=== PATIENT | male | born 1935 | race African-American/Black ===

== ENCOUNTER 2017-04-11 10:51 | Emergency (ER) | payer MEDICARE, BC ==
[2017-04-11] MEDS ORDERED: DIPH/PERTUSS(ACELL)/TETANUS VAC/PF 0.5 ML SYR (>=10YO) IM ONE (10:59)
--- NOTE | 2017-04-11 11:02 | ER Document Report ---
ED Fall - General Stated Complaint: FALL BODY PAIN Time Seen by Provider: 04/11/17 10:56 Mode of Arrival: Medic Information source: Emergency Med Personnel TRAVEL OUTSIDE OF THE [place] IN LAST 30 DAYS: No - HPI Patient complains to provider of: Fall from bed with LOC Occurred: Just prior to arrival Where: Home Associated symptoms: Lost consciousness Location of injury/pain: Face, Head Notes: Patient is an 82-year-old male who is brought to the emergency room by EMS for complaints of fall from bed this morning with positive LOC according to his , patient does not recall falling, patient's did report to EMS that he has been increasingly confused lately patient is a poor historian and unable to provide any further details, patient's is not currently in the emergency room with patient to provide further details either, he does have small abrasions to his forehead and nasal bridge - Related data Allergies/Adverse Reactions: No Known Allergies Allergy (Verified 12/13/15 16:10) Past Medical History - General Information source: Emergency Med Personnel - Social History Smoking Status: Unknown if Ever Smoked Family History: Reviewed & Not Pertinent - Past Medical History Cardiac Medical History: Denies: Hx Coronary Artery Disease, Hx Heart Attack, Hx Hypertension Pulmonary Medical History: Denies: Hx Asthma, Hx Bronchitis, Hx COPD, Hx Pneumonia Neurological Medical History: Reports: Hx Cerebrovascular Accident - 1992. Denies: Hx Seizures GI Medical History: Denies: Hx Hepatitis, Hx Hiatal Hernia, Hx Ulcer Musculoskeltal Medical History: Denies Hx Arthritis Infectious Medical History: Denies: Hx Hepatitis Past Surgical History: Denies: Hx Open Heart Surgery, Hx Pacemaker - Immunizations Hx Diphtheria, Pertussis, Tetanus Vaccination: No Hx Pneumococcal Vaccination: 04/10/13 Review of Systems - Review of Systems -: Yes ROS unobtainable due to patient's medical condition Constitutional: No symptoms reported EENT: See HPI Cardiovascular: No symptoms reported Respiratory: No symptoms reported Gastrointestinal: No symptoms reported Genitourinary: No symptoms reported Male Genitourinary: No symptoms reported Musculoskeletal: No symptoms reported Skin: See HPI Hematologic/Lymphatic: No symptoms reported Neurological/Psychological: Confusion Physical Exam - Vital signs Vitals: Temp Pulse Resp BP Pulse Ox 97.5 F 53 L 18 126/59 H 100 04/11/17 10:55 04/11/17 10:55 04/11/17 10:55 04/11/17 10:55 04/11/17 10:55 Interpretation: Normal - General General appearance: Appears well, Alert - HEENT Head: Normocephalic, Abrasions - Small abrasions to right forehead and nasal bridge, over right maxilla Eyes: Normal Conjunctiva: Normal Extraocular movements intact: Yes Eyelashes: Normal Pupils: PERRL - Respiratory Respiratory status: No respiratory distress Chest status: Nontender Breath sounds: Normal Chest palpation: Normal - Cardiovascular Rhythm: Regular Heart sounds: Normal auscultation Murmur: No - Abdominal Inspection: Normal Distension: No distension Bowel sounds: Normal Tenderness: Nontender Organomegaly: No organomegaly - Back Back: Normal, Nontender - Extremities General upper extremity: Normal inspection, Nontender, Normal color, Normal ROM , Normal temperature General lower extremity: Normal inspection, Nontender, Normal color, Normal ROM , Normal temperature, Normal weight bearing. No: Vaughn's sign - Neurological Neuro grossly intact: Yes Cognition: Normal, Confused Orientation: Disoriented to place, Disoriented to time, Disoriented to events Mili Coma Scale Eye Opening: Spontaneous Mili Coma Scale Verbal: Confused Mili Coma Scale Motor: Obeys Commands Mili Coma Scale Total: 14 Speech: Normal Motor strength normal: LUE, RUE, LLE, RLE - Skin Skin Temperature: Warm Skin Moisture: Dry Skin Color: Normal Course - Re-evaluation Re-evalutation: 04/11/17 20:11 Imaging findings were discussed with patient and family members at bedside which are unremarkable, patient was discharged home with instructions for follow -up and advised to return if symptoms worsen, patient acknowledges understanding and agreement with the - Vital Signs Vital signs: Temp Pulse Resp BP Pulse Ox 97.5 F 62 18 124/62 100 04/11/17 14:25 04/11/17 14:25 04/11/17 14:25 04/11/17 14:25 04/11/17 14:25 - Laboratory Result Diagrams: 04/11/17 11:06 04/11/17 11:06 Laboratory results interpreted by me: 04/11/17 04/11/17 11:06 11:06 RDW 14.8 H Plt Count 130 L Eosinophils % 7.1 H BUN 22 H - Diagnostic Test Radiology reviewed: Image reviewed, Reports reviewed Procedures - Laceration/Wound Repair Nasal Bridge Time completed: 14:10 Wound length (cm): 1 Wound's Depth, Shape: Linear Laceration pre-procedure: Sterile PPE donned, Chloraprep applied Wound explored: Clean Wound Repaired With: Dermabond Discharge - Discharge Clinical Impression: Head injury Qualifiers: Encounter type: initial encounter Qualified Code(s): S09.90XA - Unspecified injury of head, initial encounter Laceration of nose Qualifiers: Encounter type: initial encounter Qualified Code(s): S01.21XA - Laceration without foreign body of nose, initial encounter Condition: Stable Disposition: HOME, SELF-CARE Instructions: Laceration Care ([facility]), Tetanus Immunization Given ([facility]), Soap Cleansing ([facility]), Skin Adhesive Closure ([facility]) Additional Instructions: Follow up with your primary care provider in one to 2 days. Return to the emergency room immediately if symptoms worsen or any additional concerns. Referrals: SUSSY VALENCIA MD [Primary Care Provider] - Follow up as needed
[2017-04-11 11:28] LABS: ABSOLUTE EOSINOPHILS # (AUTO) 0.3 10^3/uL (0.0-0.6); ABSOLUTE LYMPHOCYTES (AUTO) 1.6 10^3/uL (0.5-4.7); ABSOLUTE MONOCYTES (AUTO) 0.4 10^3/uL (0.1-1.4); ABSOLUTE NEUT (AUTO) 1.8 10^3/uL (1.7-8.2); BASOPHILS % (AUTO) 0.5 % (0-2); EOSINOPHILS % (AUTO) 7.1 % (0-6); HEMATOCRIT 42.3 % (37.9-51.0); HEMOGLOBIN 13.8 g/dL (13.5-17.0); HGB HCT DIFFERENCE -0.9; LYMPHOCYTES % (AUTO) 39.3 % (13-45); MEAN CORPUSCULAR HEMOGLOBIN 30.2 pg (27.0-33.4); MEAN CORPUSCULAR HGB CONC 32.7 g/dL (32.0-36.0); MEAN CORPUSCULAR VOLUME 93 fl (80-97); MONOCYTES % (AUTO) 9.3 % (3-13); RED BLOOD COUNT 4.57 10^6/uL (4.35-5.55); RED CELL DISTRIBUTION WIDTH 14.8 % (11.5-14.0); SEGMENTED NEUTROPHILS % (AUTO) 43.8 % (42-78)
[2017-04-11 11:53] LABS: ALANINE AMINOTRANSFERASE 23 U/L (21-72); ALBUMIN 3.7 g/dL (3.5-5.0); ALKALINE PHOSPHATASE 42 U/L (38-126); ANION GAP 9 (5-19); ASPARTATE AMINO TRANSFERASE 25 U/L (17-59); BILIRUBIN,DIRECT 0.3 mg/dL (0.0-0.4); BILIRUBIN,TOTAL 1.2 mg/dL (0.2-1.3); BLOOD UREA NITROGEN 22 mg/dL (7-20); CALCIUM 9.4 mg/dL (8.4-10.2); CARBON DIOXIDE 26 mmol/L (22-30); CHLORIDE 107 mmol/L (98-107); CREATININE RESULT 1.05 mg/dL (0.52-1.25); GLUCOSE 109 mg/dL (75-110); POTASSIUM 4.1 mmol/L (3.6-5.0); SODIUM 141.6 mmol/L (137-145); TOTAL PROTEIN 6.6 g/dL (6.3-8.2)
--- NOTE | 2017-04-11 12:07 | RADIOLOGY REPORT (SQ) ---
EXAM DESCRIPTION: CT HEAD WITHOUT COMPLETED DATE/TIME: 04/11/2017 11:45 am REASON FOR STUDY: bed 17 fall +LOC COMPARISON: CT brain 03/04/2008 TECHNIQUE: Axial images acquired through the brain without intravenous contrast. Images reviewed wi th bone, brain and subdural windows. Images stored on PACS. All CT scanners at this facility use dose modulation, iterative reconstruction, and/or weight based d osing when appropriate to reduce radiation dose to as low as reasonably achievable (ALARA). [facility]: Dose Right [facility]: CareDose [facility]: Dose Right [facility]: Teradose 4D [facility]: [employer] RADIATION DOSE: 64.61 mGy. LIMITATIONS: None. FINDINGS: VENTRICLES: Normal size and contour. CEREBRUM: Old right deep posterior frontal periventricular white matter infarct. Minimal small vesse l ischemic change in the bifrontal and biparietal regions. No CT evidence of acute large territory ischemic change, acute intracranial hemorrhage mass effect or midline shift. CEREBELLUM: No masses. No hemorrhage. No alteration of density. No evidence for acute infarction. EXTRAAXIAL SPACES: No fluid collections. No masses. ORBITS AND GLOBE: No intra- or extraconal masses. Normal contour of globe without masses. CALVARIUM: No fracture. PARANASAL SINUSES: Mucous membrane thickening bilateral maxillary sinuses. Fluid in the right fronta l and bilateral anterior ethmoid air cells. SOFT TISSUES: No mass or hematoma. OTHER: No other significant finding. IMPRESSION: No acute intracranial changes. TECHNICAL DOCUMENTATION: JOB ID: [id number] Quality ID # [id number]: Final reports with documentation of one or more dose reduction techniques (e.g., Au tomated exposure control, adjustment of the mA and/or kV according to patient size, use of iterative reconstruction technique) 2010 [employer]- All Rights Reserved
--- NOTE | 2017-04-11 12:10 | RADIOLOGY REPORT (SQ) ---
EXAM DESCRIPTION: CT CERVICAL SPINE WITHOUT COMPLETED DATE/TIME: 04/11/2017 11:46 am REASON FOR STUDY: bed 17 fall +LOC COMPARISON: None. TECHNIQUE: Axial images acquired through the cervical spine without intravenous contrast. Images re viewed with lung, soft tissue and bone windows. Reconstructed coronal and sagittal MPR images review ed. Images stored on PACS. All CT scanners at this facility use dose modulation, iterative reconstruction, and/or weight based d osing when appropriate to reduce radiation dose to as low as reasonably achievable (ALARA). [facility]: Dose Right [facility]: CareDose [facility]: Dose Right [facility]: Teradose 4D [facility]: [employer] RADIATION DOSE: 14.29 mGy. LIMITATIONS: None. FINDINGS: ALIGNMENT: Anatomic. MINERALIZATION: Normal. VERTEBRAL BODIES: No fractures or dislocation. DISCS: No significant disc disease. FACETS, LATERAL MASSES, POSTERIOR ELEMENTS: No fractures. No dislocation. No acute findings. Multi level facet arthropathy with moderate right C3-4, moderate left C4-5, moderate bilateral C5-6, and mo derate left C6-7 foraminal narrowing. HARDWARE: None in the spine. VISUALIZED RIBS: No fractures. LUNG APICES AND SOFT TISSUES: No significant or acute findings. OTHER: No other significant finding. IMPRESSION: No acute fracture or malalignment. TECHNICAL DOCUMENTATION: JOB ID: [id number] Quality ID # [id number]: Final reports with documentation of one or more dose reduction techniques (e.g., Au tomated exposure control, adjustment of the mA and/or kV according to patient size, use of iterative reconstruction technique) 2010 [employer]- All Rights Reserved
[2017-04-11 13:04] LABS: APPEARANCE,URINE CLEAR; BILIRUBIN,URINE NEGATIVE (NEGATIVE); GLUCOSE, URINE NEGATIVE (NEGATIVE); KETONES,URINE NEGATIVE (NEGATIVE); LEUKOCYTE ESTERASE,URINE NEGATIVE (NEGATIVE); NITRITE,URINE NEGATIVE (NEGATIVE); PROTEIN,URINE NEGATIVE (NEGATIVE); UROBILINOGEN,URINE NEGATIVE mg/dL (<2.0)
[2017-04-11 14:26] VITALS: BP 124/62
== END 2017-04-11 14:26 | disposition home or self-care (01) ==
LOC: ER 10:51
DX: S09.90XA Unspecified injury of head, initial encounter (principal); S01.21XA Laceration without foreign body of nose, initial encounter; R52 Pain, unspecified; W19.XXXA Unspecified fall, initial encounter
CPT/HCPCS: 36415; 70450; 72125; 80053; 81001; 85025; 87040; 87086; 90471; 90715; 99284

== ENCOUNTER 2017-06-18 11:34 | Emergency (ER) | payer BC, MEDICARE ==
[2017-06-18 12:07] LABS: ABSOLUTE EOSINOPHILS # (AUTO) 0.2 10^3/uL (0.0-0.6); ABSOLUTE LYMPHOCYTES (AUTO) 1.1 10^3/uL (0.5-4.7); ABSOLUTE MONOCYTES (AUTO) 0.3 10^3/uL (0.1-1.4); ABSOLUTE NEUT (AUTO) 2.7 10^3/uL (1.7-8.2); BASOPHILS % (AUTO) 0.7 % (0-2); EOSINOPHILS % (AUTO) 4.7 % (0-6); HEMATOCRIT 39.4 % (37.9-51.0); HEMOGLOBIN 13.3 g/dL (13.5-17.0); HGB HCT DIFFERENCE 0.5; LYMPHOCYTES % (AUTO) 25.3 % (13-45); MEAN CORPUSCULAR HEMOGLOBIN 31.2 pg (27.0-33.4); MEAN CORPUSCULAR HGB CONC 33.8 g/dL (32.0-36.0); MEAN CORPUSCULAR VOLUME 92 fl (80-97); RED BLOOD COUNT 4.27 10^6/uL (4.35-5.55); RED CELL DISTRIBUTION WIDTH 14.9 % (11.5-14.0); SEGMENTED NEUTROPHILS % (AUTO) 62.3 % (42-78); WHITE BLOOD COUNT 4.4 10^3/uL (4.0-10.5)
--- NOTE | 2017-06-18 12:21 | RADIOLOGY REPORT (SQ) ---
EXAM DESCRIPTION: CT HEAD WITHOUT COMPLETED DATE/TIME: 06/18/2017 12:11 pm REASON FOR STUDY: seizure COMPARISON: CT brain 04/11/2017, 03/04/2008 TECHNIQUE: Axial images acquired through the brain without intravenous contrast. Images reviewed wi th bone, brain and subdural windows. Images stored on PACS. All CT scanners at this facility use dose modulation, iterative reconstruction, and/or weight based d osing when appropriate to reduce radiation dose to as low as reasonably achievable (ALARA). [facility]: Dose Right [facility]: CareDose [facility]: Dose Right [facility]: Teradose 4D [facility]: [employer] RADIATION DOSE: Up-to-date CT equipment and radiation dose reduction techniques were employed. CTDIv ol: 64.6 mGy. DLP: 1163 mGy-cm. mGy. LIMITATIONS: None. FINDINGS: VENTRICLES: Normal size and contour. CEREBRUM: Old infarcts in the right frontal deep periventricular white matter extending into the post erior internal capsule. Spotty bifrontal and biparietal chronic white matter disease. No CT evidence of acute large territory infarct, acute intracranial hemorrhage, mass effect, or midli ne shift. CEREBELLUM: No masses. No hemorrhage. No alteration of density. No evidence for acute infarction. EXTRAAXIAL SPACES: No fluid collections. No masses. ORBITS AND GLOBE: No intra- or extraconal masses. Normal contour of globe without masses. CALVARIUM: No fracture. PARANASAL SINUSES: Mucous membrane thickening right maxillary sinus, opacified right frontal and ante rior ethmoid air cells. SOFT TISSUES: No mass or hematoma. OTHER: Very heavily calcified parasellar carotid arteries. IMPRESSION: No acute findings TECHNICAL DOCUMENTATION: JOB ID: [id number] Quality ID # [id number]: Final reports with documentation of one or more dose reduction techniques (e.g., Au tomated exposure control, adjustment of the mA and/or kV according to patient size, use of iterative reconstruction technique) 2010 [employer]- All Rights Reserved
[2017-06-18 12:33] LABS: ALANINE AMINOTRANSFERASE 18 U/L (21-72); ALBUMIN 3.5 g/dL (3.5-5.0); ALKALINE PHOSPHATASE 41 U/L (38-126); ANION GAP 7 (5-19); ASPARTATE AMINO TRANSFERASE 19 U/L (17-59); BILIRUBIN,DIRECT 0.3 mg/dL (0.0-0.4); BILIRUBIN,TOTAL 1.1 mg/dL (0.2-1.3); BLOOD UREA NITROGEN 14 mg/dL (7-20); CALCIUM 9.1 mg/dL (8.4-10.2); CARBON DIOXIDE 26 mmol/L (22-30); CHLORIDE 108 mmol/L (98-107); CREATININE RESULT 0.91 mg/dL (0.52-1.25); GLUCOSE 100 mg/dL (75-110); POTASSIUM 4.2 mmol/L (3.6-5.0); TOTAL PROTEIN 5.9 g/dL (6.3-8.2)
--- NOTE | 2017-06-18 12:47 | ER Document Report ---
ED General - General Chief Complaint: Probable Seizure Stated Complaint: POSSIBLE SEIZURE Time Seen by Provider: 06/18/17 11:45 Mode of Arrival: Ambulatory Information source: Patient Notes: 82-year-old male presents with concerns for absence seizure. It is noted that patient was at primary care office for abdominal pain, they had made appointment earlier when he had the pain but by the time the appointment date presented the patient no longer had any symptoms. But they still continue the visit. It is noted that the patient was talking fine and then had a 15 minute episode where he was staring off. Similar episode has occurred in January when they were in [place] Patient at this time denies any complaints denies any concerns TRAVEL OUTSIDE OF THE [place] IN LAST 30 DAYS: No - HPI Onset: Just prior to arrival Onset/Duration: Sudden Quality of pain: No pain Severity: Mild Pain Level: Denies Associated symptoms: Other Exacerbated by: Denies Relieved by: Denies Similar symptoms previously: Yes Recently seen / treated by doctor: Yes - Related Data Allergies/Adverse Reactions: No Known Allergies Allergy (Verified 12/13/15 16:10) Past Medical History - Social History Smoking Status: Never Smoker Cigarette use (# per day): No Chew tobacco use (# tins/day): No Smoking Education Provided: No Frequency of alcohol use: None Drug Abuse: None Family History: Reviewed & Not Pertinent Patient has suicidal ideation: No Patient has homicidal ideation: No - Past Medical History Cardiac Medical History: Denies: Hx Coronary Artery Disease, Hx Heart Attack, Hx Hypertension Pulmonary Medical History: Denies: Hx Asthma, Hx Bronchitis, Hx COPD, Hx Pneumonia Neurological Medical History: Reports: Hx Cerebrovascular Accident - 1992. Denies: Hx Seizures Renal/ Medical History: Denies: Hx Peritoneal Dialysis GI Medical History: Denies: Hx Hepatitis, Hx Hiatal Hernia, Hx Ulcer Musculoskeltal Medical History: Denies Hx Arthritis Infectious Medical History: Denies: Hx Hepatitis Past Surgical History: Denies: Hx Open Heart Surgery, Hx Pacemaker - Immunizations Hx Diphtheria, Pertussis, Tetanus Vaccination: No Hx Pneumococcal Vaccination: 04/10/13 Review of Systems - Review of Systems Notes: REVIEW OF SYSTEMS: CONSTITUTIONAL : Denies fever, chills, or sweats. Denies recent illness. EENT: Denies eye, ear, throat, or mouth pain or symptoms. Denies nasal or sinus congestion or discharge. Denies throat, tongue, or mouth swelling or difficulty swallowing. CARDIOVASCULAR: Denies chest pain. Denies palpitations or racing or irregular heart beat. Denies ankle edema. RESPIRATORY: Denies cough, cold, or chest congestion. Denies shortness of breath, difficulty breathing, or wheezing. GASTROINTESTINAL: Denies abdominal pain or distention. Denies nausea, vomiting , or diarrhea. Denies blood in vomitus, stools, or per rectum. Denies black, tarry stools. Denies constipation. GENITOURINARY: Denies difficulty urinating, painful urination, burning, frequency, blood in urine, or discharge. MUSCULOSKELETAL: Denies back or neck pain or stiffness. Denies joint pain or swelling. SKIN: Denies rash, lesions or sores. HEMATOLOGIC : Denies easy bruising or bleeding. LYMPHATIC: Denies swollen, enlarged glands. NEUROLOGICAL: 15 minute episode of staring off PSYCHIATRIC: Denies anxiety or stress. Denies depression, suicidal ideation, or homicidal ideation. ALL OTHER SYSTEMS REVIEWED AND NEGATIVE. Dictation was performed using [employer] voice recognition software PHYSICAL EXAMINATION: GENERAL: Well-appearing, well-nourished and in no acute distress. HEAD: Atraumatic, normocephalic. EYES: Pupils equal round and reactive to light, extraocular movements intact, sclera anicteric, conjunctiva are normal. ENT: Nares patent, oropharynx clear without exudates. Moist mucous membranes. NECK: Normal range of motion, supple without lymphadenopathy LUNGS: Breath sounds clear to auscultation bilaterally and equal. No wheezes rales or rhonchi. HEART: Regular rate and rhythm without murmurs ABDOMEN: Soft, nontender, nondistended abdomen. No guarding, no rebound. No masses appreciated. Musculoskeletal: Normal range of motion, no pitting or edema. No cyanosis. NEUROLOGICAL: Cranial nerves grossly intact. Normal speech, normal gait. Normal sensory, motor exams PSYCH: Normal mood, normal affect. SKIN: Warm, Dry, normal turgor, no rashes or lesions noted. Physical Exam - Vital signs Vitals: Temp Resp BP Pulse Ox 98.4 F 15 133/65 H 95 06/18/17 11:46 06/18/17 11:46 06/18/17 11:46 06/18/17 11:46 Course - Re-evaluation Re-evalutation: 06/18/17 12:47 CT labwork so far no no significant abnormality, patient wishes to go home. I am awaiting a urine sample, patient will require neurology follow-up for an EEG , family is made aware of this 06/18/17 14:46 Urinalysis is consistent with positive nitrites patient will be started on antibiotics otherwise is well-appearing he will be given follow-up with urology for discharge 06/18/17 14:50 After performing a Medical Screening Examination, I estimate there is LOW risk for ACUTE APPENDICITIS, BOWEL OBSTRUCTION, ACUTE CHOLECYSTITIS, PERFORATED DIVERTICULITIS, INCARCERATED HERNIA, PANCREATITIS, or PERFORATED ULCER, thus I consider the discharge disposition reasonable. Also, there is no evidence or peritonitis, sepsis, or toxicity. I have reevaluated this patient multiple times and no significant life threatening changes are noted. The patient and I have discussed the diagnosis and risks, and we agree with discharging home with close follow-up with the understanding that symptoms and presentations can change. We also discussed returning to the Emergency Department immediately if new or worsening symptoms occur. We have discussed the symptoms which are most concerning (e.g., bloody stool, fever, changing or worsening pain, intractable vomiting - standard verbal up date) that necessitate immediate return. After performing a Medical Screening Examination, I estimate there is LOW risk for ACUTE GLAUCOMA, TEMPORAL ARTERITIS, MENINGITIS, INCRANIAL HEMORRHAGE, or ISCHEMIC STROKE thus I consider the discharge disposition reasonable. I have reevaluated this patient multiple times and no significant life threatening changes are noted. The patient and I have discussed the diagnosis and risks, and we agree with discharging home with close follow-up with the understanding that symptoms and presentations can change. We also discussed returning to the Emergency Department immediately if new or worsening symptoms occur. We have discussed the symptoms which are most concerning (e.g., changing or worsening symptoms, new numbness or weakness, vomiting, fever) that necessitate immediate return. - Vital Signs Vital signs: Temp Pulse Resp BP Pulse Ox 98.4 F 51 L 20 145/92 H 100 06/18/17 11:46 06/18/17 11:54 06/18/17 14:00 06/18/17 13:26 06/18/17 14:00 - Laboratory Result Diagrams: 06/18/17 11:55 06/18/17 11:55 Laboratory results interpreted by me: 06/18/17 06/18/17 06/18/17 11:55 11:55 13:30 RBC 4.27 L Hgb 13.3 L RDW 14.9 H Plt Count 134 L Chloride 108 H ALT 18 L Total Protein 5.9 L Urine Blood SMALL H Urine Nitrite POSITIVE H - Diagnostic Test Radiology reviewed: Image reviewed, Reports reviewed - no acute abnormality Discharge - Discharge Clinical Impression: Absence seizure UTI (urinary tract infection) Qualifiers: Urinary tract infection type: acute cystitis Hematuria presence: without hematuria Qualified Code(s): N30.00 - Acute cystitis without hematuria Condition: Stable Disposition: HOME, SELF-CARE Instructions: Urinary Tract Infection ([facility]), New Seizure ([facility]) Prescriptions: Cephalexin [Keflex] 500 mg PO BID #20 capsule Referrals: ROX CASEY DO [Primary Care Provider] - Follow up tomorrow NICOLAS RAE MD [ACTIVE STAFF] - Follow up tomorrow
--- NOTE | 2017-06-18 13:25 | EKG REPORT ---
SEVERITY:- ABNORMAL ECG - SINUS RHYTHM FIRST DEGREE AV BLOCK : Confirmed by: Carol Mensah 18-Jun-2017 13:24:40
[2017-06-18 14:38] LABS: APPEARANCE,URINE CLEAR; BILIRUBIN,URINE NEGATIVE (NEGATIVE); GLUCOSE, URINE NEGATIVE (NEGATIVE); KETONES,URINE NEGATIVE (NEGATIVE); LEUKOCYTE ESTERASE,URINE NEGATIVE (NEGATIVE); NITRITE,URINE POSITIVE (NEGATIVE); PROTEIN,URINE NEGATIVE (NEGATIVE); URINE SPECIFIC GRAVITY 1.014; UROBILINOGEN,URINE NEGATIVE mg/dL (<2.0)
[2017-06-18 14:41] VITALS: BP 145/92
== END 2017-06-18 15:00 | disposition home or self-care (01) ==
LOC: ER 11:34
DX: R56.9 Unspecified convulsions (principal); N30.00 Acute cystitis without hematuria; Z86.73 Personal history of transient ischemic attack (TIA), and cerebral infarction without residual deficits
CPT/HCPCS: 36415; 70450; 80053; 81001; 85025; 87086; 93005; 93010; 99285

== ENCOUNTER 2019-01-10 15:29 | Emergency (ER) | payer MEDICARE ==
[2019-01-10 15:55] LABS: ABSOLUTE LYMPHOCYTES (AUTO) 0.3 10^3/uL (0.5-4.7); ABSOLUTE MONOCYTES (AUTO) 0.3 10^3/uL (0.1-1.4); ABSOLUTE NEUT (AUTO) 3.4 10^3/uL (1.7-8.2); BASOPHILS % (AUTO) 0.4 % (0-2); EOSINOPHILS % (AUTO) 0.3 % (0-6); HEMATOCRIT 36.9 % (37.9-51.0); HEMOGLOBIN 12.5 g/dL (13.5-17.0); LYMPHOCYTES % (AUTO) 7.9 % (13-45); MEAN CORPUSCULAR HEMOGLOBIN 30.6 pg (27.0-33.4); MEAN CORPUSCULAR HGB CONC 33.8 g/dL (32.0-36.0); MEAN CORPUSCULAR VOLUME 90 fl (80-97); MONOCYTES % (AUTO) 8.2 % (3-13); RED BLOOD COUNT 4.08 10^6/uL (4.35-5.55); RED CELL DISTRIBUTION WIDTH 14.3 % (11.5-14.0); SEGMENTED NEUTROPHILS % (AUTO) 83.2 % (42-78); TOTAL CELLS COUNTED % (AUTO) 100 %
[2019-01-10 15:58] LABS: PLATELET COUNT 98 10^3/uL (150-450)
[2019-01-10 16:46] LABS: ALANINE AMINOTRANSFERASE 17 U/L (21-72); ALBUMIN 3.6 g/dL (3.5-5.0); ALKALINE PHOSPHATASE 38 U/L (38-126); ANION GAP 9 (5-19); ASPARTATE AMINO TRANSFERASE 23 U/L (17-59); BILIRUBIN,DIRECT 0.3 mg/dL (0.0-0.4); BILIRUBIN,TOTAL 1.2 mg/dL (0.2-1.3); BLOOD UREA NITROGEN 16 mg/dL (7-20); CALCIUM 9.3 mg/dL (8.4-10.2); CARBON DIOXIDE 22 mmol/L (22-30); CHLORIDE 112 mmol/L (98-107); GLUCOSE 146 mg/dL (75-110); SODIUM 143.3 mmol/L (137-145); TOTAL PROTEIN 5.5 g/dL (6.3-8.2)
[2019-01-10] MEDS ORDERED: KETOROLAC TROMETHAMINE INJ/PF 30 MG/1 ML SDV IV ONE (16:51)
[2019-01-10] MEDS ORDERED: NORMAL SALINE 500 ML IV ONE ×2 (16:51→18:58)
--- NOTE | 2019-01-10 17:09 | ER Document Report ---
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 Patient has no physical complaints at this time and was unaware that he was febrile. He states that he did not strike his head or neck when he fell in the bathroom. He does admit to pain with urination and a nonproductive cough that has been present for several days. Patient has had sick contacts with a with similar upper respiratory symptoms. Patient denies today, chest pain, shortness of breath, abdominal pain, nausea, vomiting, diarrhea. TRAVEL OUTSIDE OF THE [place] IN LAST 30 DAYS: No - HPI Onset: Just prior to arrival Onset/Duration: Sudden Quality of pain: No pain Severity: None Pain Level: Denies Associated symptoms: Fever. denies: Chest pain, Nonproductive cough, Productive cough, Headache, Nausea, Vomiting, Shortness of breath Exacerbated by: Denies Relieved by: Denies Similar symptoms previously: Yes Recently seen / treated by doctor: No - Related Data Allergies/Adverse Reactions: No Known Allergies Allergy (Verified 12/13/15 16:10) Past Medical History - General Information source: Patient, [facility] Records - Social History Smoking Status: Never Smoker Frequency of alcohol use: None Drug Abuse: None Lives with: Family Family History: Reviewed & Not Pertinent Patient has suicidal ideation: No Patient has homicidal ideation: No - Past Medical History Cardiac Medical History: Denies: Hx Coronary Artery Disease, Hx Heart Attack, Hx Hypertension Pulmonary Medical History: Denies: Hx Asthma, Hx Bronchitis, Hx COPD, Hx Pneumonia Neurological Medical History: Reports: Hx Cerebrovascular Accident - 1992. Denies: Hx Seizures Renal/ Medical History: Denies: Hx Peritoneal Dialysis GI Medical History: Denies: Hx Hepatitis, Hx Hiatal Hernia, Hx Ulcer Musculoskeletal Medical History: Denies Hx Arthritis Infectious Medical History: Denies: Hx Hepatitis Past Surgical History: Denies: Hx Open Heart Surgery, Hx Pacemaker - Immunizations Hx Diphtheria, Pertussis, Tetanus Vaccination: No Hx Pneumococcal Vaccination: 04/10/13 Review of Systems - Review of Systems Notes: REVIEW OF SYSTEMS: CONSTITUTIONAL : Denies fever, chills, or sweats. Denies recent illness. Denies weight loss, recent hospitalizations. EENT: Denies visual changes, eye pain. Denies sore throat, oral lesions, d ifficulty swallowing. CARDIOVASCULAR: Denies chest pain. Denies palpitations. Denies lower extremity edema. RESPIRATORY: Denies cough. Denies shortness of breath, wheezing. GASTROINTESTINAL: Denies abdominal pain or distention. Denies nausea, vomiting, or diarrhea. Denies blood in vomitus, stools, or per rectum. Denies black, tarry stools. Denies constipation. GENITOURINARY: Denies difficulty urinating, frequency, blood in urine, testicular pain or penile discharge. MUSCULOSKELETAL: Denies back or neck pain or stiffness. Denies joint pain or swelling. SKIN: Denies rash, lesions or sores. HEMATOLOGIC : Denies easy bruising or bleeding. LYMPHATIC: Denies swollen glands. NEUROLOGICAL: Denies confusion or altered mental, denies slurred speech. Denies sensory loss, numbness, or tingling. Denies seizures. PSYCHIATRIC: Denies anxiety or stress. Denies depression, suicidal ideation, or Physical Exam - Vital signs Vitals: Resp Pulse Ox 19 95 01/10/19 15:31 01/10/19 15:31 - Notes Notes: PHYSICAL EXAMINATION: GENERAL: Frail, no acute distress HEAD: Atraumatic, normocephalic. EYES: Pupils equal round and reactive to light, extraocular movements intact, sclera anicteric, conjunctiva are normal. ENT: Nares patent, oropharynx clear without exudates. Moist mucous membranes. NECK: Normal range of motion, supple without lymphadenopathy LUNGS: Breath sounds clear to auscultation bilaterally and equal. No wheezes rales or rhonchi. HEART: Regular rate and rhythm without murmurs ABDOMEN: Soft, nontender, nondistended abdomen. No guarding, no rebound. No masses appreciated. Musculoskeletal: Left upper extremity contracted. A limited range of motion of the left lower extremity. Moves all other extremities without difficulty. NEUROLOGICAL: Cranial nerves grossly intact. Normal speech, left-sided paralysis-chronic PSYCH: Normal mood, normal affect. SKIN: Warm, Dry, normal turgor, no rashes or lesions noted. Course - Re-evaluation Re-evalutation: Laboratory 01/10/19 01/10/19 01/10/19 15:35 15:35 15:35 WBC 4.0 RBC 4.08 L Hgb 12.5 L Hct 36.9 L MCV 90 MCH 30.6 MCHC 33.8 RDW 14.3 H Plt Count 98 L Seg Neutrophils % 83.2 H Lymphocytes % 7.9 L Monocytes % 8.2 Eosinophils % 0.3 Basophils % 0.4 Absolute Neutrophils 3.4 Absolute Lymphocytes 0.3 L Absolute Monocytes 0.3 Absolute Eosinophils 0.0 Absolute Basophils 0.0 VBG pH VBG pCO2 VBG HCO3 VBG Base Excess Sodium 143.3 Potassium 4.0 Chloride 112 H Carbon Dioxide 22 Anion Gap 9 BUN 16 Creatinine 1.11 Est GFR ( Amer) > 60 Est GFR (Non-Af Amer) > 60 Glucose 146 H Lactic Acid 2.1 Calcium 9.3 Total Bilirubin 1.2 Direct Bilirubin 0.3 Neonat Total Bilirubin Not Reportable Neonat Direct Bilirubin Not Reportable Neonat Indirect Bili Not Reportable AST 23 ALT 17 L Alkaline Phosphatase 38 Creatine Kinase CK-MB (CK-2) Troponin I Total Protein 5.5 L Albumin 3.6 Urine Color Urine Appearance Urine pH Ur Specific [place] Urine Protein Urine Glucose (UA) Urine Ketones Urine Blood Urine Nitrite Urine Bilirubin Urine Urobilinogen Ur Leukocyte Esterase Urine WBC (Auto) Urine RBC (Auto) Amorphous Sediment Auto Urine Mucus (Auto) Urine Ascorbic Acid Influenza A (Rapid) Influenza B (Rapid) 01/10/19 01/10/19 01/10/19 15:35 15:35 15:35 WBC RBC Hgb Hct MCV MCH MCHC RDW Plt Count Seg Neutrophils % Lymphocytes % Monocytes % Eosinophils % Basophils % Absolute Neutrophils Absolute Lymphocytes Absolute Monocytes Absolute Eosinophils Absolute Basophils VBG pH 7.44 H VBG pCO2 39.9 VBG HCO3 26.5 VBG Base Excess 2.2 Sodium Potassium Chloride Carbon Dioxide Anion Gap BUN Creatinine Est GFR ( Amer) Est GFR (Non-Af Amer) Glucose Lactic Acid Calcium Total Bilirubin Direct Bilirubin Neonat Total Bilirubin Neonat Direct Bilirubin Neonat Indirect Bili AST ALT Alkaline Phosphatase Creatine Kinase 171 H CK-MB (CK-2) 1.51 Troponin I < 0.012 Total Protein Albumin Urine Color Urine Appearance Urine pH Ur Specific [place] Urine Protein Urine Glucose (UA) Urine Ketones Urine Blood Urine Nitrite Urine Bilirubin Urine Urobilinogen Ur Leukocyte Esterase Urine WBC (Auto) Urine RBC (Auto) Amorphous Sediment Auto Urine Mucus (Auto) Urine Ascorbic Acid Influenza A (Rapid) Influenza B (Rapid) 01/10/19 01/10/19 18:50 19:27 WBC RBC Hgb Hct MCV MCH MCHC RDW Plt Count Seg Neutrophils % Lymphocytes % Monocytes % Eosinophils % Basophils % Absolute Neutrophils Absolute Lymphocytes Absolute Monocytes Absolute Eosinophils Absolute Basophils VBG pH VBG pCO2 VBG HCO3 VBG Base Excess Sodium Potassium Chloride Carbon Dioxide Anion Gap BUN Creatinine Est GFR ( Amer) Est GFR (Non-Af Amer) Glucose Lactic Acid Calcium Total Bilirubin Direct Bilirubin Neonat Total Bilirubin Neonat Direct Bilirubin Neonat Indirect Bili AST ALT Alkaline Phosphatase Creatine Kinase CK-MB (CK-2) Troponin I Total Protein Albumin Urine Color YELLOW Urine Appearance SLIGHTLY-CLOUDY Urine pH 5.0 Ur Specific [place] 1.025 Urine Protein NEGATIVE Urine Glucose (UA) NEGATIVE Urine Ketones NEGATIVE Urine Blood SMALL H Urine Nitrite NEGATIVE Urine Bilirubin NEGATIVE Urine Urobilinogen 2.0 H Ur Leukocyte Esterase NEGATIVE Urine WBC (Auto) 0 Urine RBC (Auto) 7 Amorphous Sediment Auto TRACE Urine Mucus (Auto) OCC Urine Ascorbic Acid NEGATIVE Influenza A (Rapid) NEGATIVE Influenza B (Rapid) POSITIVE Chest X-Ray 01/10/19 16:51 IMPRESSION: NO ACUTE RADIOGRAPHIC FINDING IN THE CHEST. Cervical Spine CT 01/10/19 16:59 IMPRESSION: Multilevel degenerative disc disease, spondylosis, and facet arthropathy. Head CT 01/10/19 16:59 IMPRESSION: Old lacunar infarct on the right. Chronic microvascular ischemia. No acute intracranial imaging findings. EVIDENCE OF ACUTE STROKE: NO. Abdomen/Pelvis CT 01/10/19 19:28 IMPRESSION: No acute intra-abdominal abnormality. Temp Pulse Resp BP Pulse Ox 98.7 F 64 19 113/52 L 97 01/10/19 22:00 01/10/19 15:48 01/10/19 22:01 01/10/19 22:01 01/10/19 22:01 84-year-old male presented via EMS after the patient's found him laying on the bathroom floor unable to get up independently. He is alert, awake and currently without any complaints. Vital signs reviewed and patient and she is afebrile with a temperature of 103. Patient does not appear toxic he does appear mildly dehydrated. Because of the patient's unwitnessed fall CT of the head and neck were obtained and without any acute process. Because of the patient's report of inability to have a bowel movement for several days a CT of his abdomen was also performed and showed no acute process. Chest x-ray is without evidence of pneumonia, pleural effusion. CBC, CMP, cardiac enzymes are essentially unremarkable. Patient found to be positive for influenza B. 01/10/19 21:13 Patient reevaluated after receiving IV fluids, Tylenol. He is alert, awake and still without any complaints. Patient's family is concerned that he is unable to walk. Patient does have left-sided deficits, and inability to use his left upper extremity due to previous CVA and usually shuffles with a cane. Patient declining admission at this time. He was able to lift himself out of bed and take a few steps which the family reports is his normal gait. Family made aware that the patient has influenza, will likely have fevers for the next 3-5 days and will require plenty of fluids and rest. When asked if the patient wanted to be admitted he said "most definitely not". I have advised the patient's several times to wear a mask near the patient and while in the hospital since she is currently undergoing chemotherapy. She was provided a mask. Patient was evaluated and treated as appropriate for the patient's presenting symptoms and complaint, with consideration of any critical or life threatening conditions that may be associated with their obtained history and exam as noted above. All results were discussed with patient and the patient's family who is at the bedside. Patient provided the opportunity to ask questions, and express concerns. Patient was educated on treatments based on their presumed diagnosis as noted above. At this time we will discharge the patient with return precau tions and follow-up recommendations. Verbal discharge instructions given a the bedside. Medication warnings reviewed. Patient is in agreement with this plan and has verbalized understanding of return precautions. After careful consideration I feel that that patient can be safely discharged from the emergency department, they were advised to followup with a primary care physician in 2-3 days. Dictation on this chart was performed using voice recognition software and may result in unintended grammatical, spelling, syntax or errors. 01/11/19 00:24 - Vital Signs Vital signs: Temp Pulse Resp BP Pulse Ox 98.7 F 64 19 113/52 L 97 01/10/19 22:00 01/10/19 15:48 01/10/19 22:01 01/10/19 22:01 01/10/19 22:01 - Laboratory Result Diagrams: 01/10/19 15:35 01/10/19 15:35 Laboratory results interpreted by me: 01/10/19 01/10/19 01/10/19 15:35 15:35 15:35 RBC 4.08 L Hgb 12.5 L Hct 36.9 L RDW 14.3 H Plt Count 98 L Seg Neutrophils % 83.2 H Lymphocytes % 7.9 L Absolute Lymphocytes 0.3 L VBG pH 7.44 H Chloride 112 H Glucose 146 H ALT 17 L Creatine Kinase Total Protein 5.5 L Urine Blood Urine Urobilinogen 01/10/19 01/10/19 15:35 18:50 RBC Hgb Hct RDW Plt Count Seg Neutrophils % Lymphocytes % Absolute Lymphocytes VBG pH Chloride Glucose ALT Creatine Kinase 171 H Total Protein Urine Blood SMALL H Urine Urobilinogen 2.0 H - Diagnostic Test Radiology reviewed: Image reviewed, Reports reviewed - EKG Interpretation by Me EKG shows normal: Sinus rhythm Rate: Normal Rhythm: NSR When compared to previous EKG there are: No significant change Discharge - Discharge Clinical Impression: Influenza, Weakness Fall Qualifiers: Encounter type: initial encounter Qualified Code(s): W19.XXXA - Unspecified fall, initial encounter Fever Qualifiers: Fever type: unspecified Qualified Code(s): R50.9 - Fever, unspecified Condition: Good Disposition: HOME, SELF-CARE Instructions: Acetaminophen, Fever ([facility]), Influenza ([facility]) Additional Instructions: You have influenza. There is no treatment that is effective for this diagnosis other than supportive care at home. This includes drinking plenty of fluids, using Tylenol or ibuprofen as needed for fever and discomfort, and Zofran as needed for nausea and vomiting. Please follow closely with you primary care physician the next 1-2 days regarding this diagnosis. Return to the emergency department immediately if you began to have persistent vomiting prevents you from being able to keep fluids down for more than 12 hours, you pass out, you began having difficulty breathing, you become confused, or you have any other symptoms that are worrisome to you. Prescriptions: Ondansetron [Zofran Odt 4 mg Tablet] 1 tab PO Q4H PRN #[id number] tab.rapdis PRN Reason: For Nausea/Vomiting Referrals: ROX CASEY DO [Primary Care Provider] - 01/12/19
[2019-01-10 17:48] LABS: VENOUS BLOOD BASE EXCESS 2.2 mmol/L; VENOUS BLOOD HCO3 26.5 mmol/L (20-32); VENOUS BLOOD PCO2 39.9 mmHg (35-63); VENOUS BLOOD PH 7.44 (7.30-7.42)
[2019-01-10 18:00] LABS: CREATINE KINASE MB 1.51 ng/mL (<4.55); TROPONIN I < 0.012 ng/mL
--- NOTE | 2019-01-10 18:11 | RADIOLOGY REPORT (SQ) ---
EXAM DESCRIPTION: CT HEAD WITHOUT COMPLETED DATE/TIME: 01/10/2019 5:48 pm REASON FOR STUDY: fall COMPARISON: None. TECHNIQUE: Axial images acquired through the brain without intravenous contrast. Images reviewed wi th bone, brain and subdural windows. Additional coronal reconstructions were generated. Images store d on PACS. All CT scanners at this facility use dose modulation, iterative reconstruction, and/or weight based d osing when appropriate to reduce radiation dose to as low as reasonably achievable (ALARA). [facility]: Dose Right [facility]: CareDose [facility]: Dose Right [facility]: Teradose 4D [facility]: [employer] RADIATION DOSE: CT Rad equipment meets quality standard of care and radiation dose reduction techniq ues were employed. CTDIvol: 53.2 mGy. DLP: 1044 mGy-cm. mGy. LIMITATIONS: None. FINDINGS: VENTRICLES: Normal size and contour. CEREBRUM: Lacunar infarct in the basal ganglia on the right. No midline shift or mass effect. No he morrhage. Areas of low density in the white matter most likely chronic small vessel ischemic changes. CEREBELLUM: No masses. No hemorrhage. No alteration of density. No evidence for acute infarction. EXTRAAXIAL SPACES: No fluid collections. No masses. ORBITS AND GLOBE: No intra- or extraconal masses. Normal contour of globe without masses. CALVARIUM: No fracture. PARANASAL SINUSES: There is mucoperiosteal thickening in the maxillary sinuses. There is opacificati on of many of the ethmoid air cells. There is opacification of the somewhat hypoplastic frontal sinu ses. SOFT TISSUES: No mass or hematoma. OTHER: No other significant finding. IMPRESSION: Old lacunar infarct on the right. Chronic microvascular ischemia. No acute intracrania l imaging findings. EVIDENCE OF ACUTE STROKE: NO. COMMENT: Quality ID # [id number]: Final reports with documentation of one or more dose reduction techniques (e.g., Automated exposure control, adjustment of the mA and/or kV according to patient size, use of iterative reconstruction technique) TECHNICAL DOCUMENTATION: JOB ID: [id number] [employer]- All Rights Reserved Reading location - IP/workstation name: [email or web address]
--- NOTE | 2019-01-10 18:16 | RADIOLOGY REPORT (SQ) ---
EXAM DESCRIPTION: CT CERVICAL SPINE WITHOUT COMPLETED DATE/TIME: 01/10/2019 5:48 pm REASON FOR STUDY: fall COMPARISON: 04/11/2017 TECHNIQUE: Axial images acquired through the cervical spine without intravenous contrast. Images re viewed with lung, soft tissue and bone windows. Reconstructed coronal and sagittal MPR images review ed. Images stored on PACS. All CT scanners at this facility use dose modulation, iterative reconstruction, and/or weight based d osing when appropriate to reduce radiation dose to as low as reasonably achievable (ALARA). [facility]: Dose Right [facility]: CareDose [facility]: Dose Right [facility]: Teradose 4D [facility]: [employer] RADIATION DOSE: CT Rad equipment meets quality standard of care and radiation dose reduction techniq ues were employed. CTDIvol: 20.0 mGy. DLP: 512 mGy-cm. mGy. LIMITATIONS: None. FINDINGS: ALIGNMENT: Anatomic. MINERALIZATION: Normal. VERTEBRAL BODIES: No fractures or dislocation. DISCS: Disc spaces are narrowed from C4-C7 with small marginal osteophytes. FACETS, LATERAL MASSES, POSTERIOR ELEMENTS: Hypertrophic facet changes are present multiple levels, l eft more than right. HARDWARE: None in the spine. VISUALIZED RIBS: No fractures. LUNG APICES AND SOFT TISSUES: No significant or acute findings. OTHER: No other significant finding. IMPRESSION: Multilevel degenerative disc disease, spondylosis, and facet arthropathy. TECHNICAL DOCUMENTATION: JOB ID: [id number] Quality ID # [id number]: Final reports with documentation of one or more dose reduction techniques (e.g., Au tomated exposure control, adjustment of the mA and/or kV according to patient size, use of iterative reconstruction technique) 2010 [employer]- All Rights Reserved Reading location - IP/workstation name: [email or web address]
--- NOTE | 2019-01-10 18:18 | RADIOLOGY REPORT (SQ) ---
EXAM DESCRIPTION: CHEST SINGLE VIEW COMPLETED DATE/TIME: 01/10/2019 5:50 pm REASON FOR STUDY: fever COMPARISON: 12/20/2010 EXAM PARAMETERS: NUMBER OF VIEWS: One view. TECHNIQUE: Single frontal radiographic view of the chest acquired. RADIATION DOSE: NA LIMITATIONS: None. FINDINGS: LUNGS AND PLEURA: No opacities, masses or pneumothorax. No pleural effusion. MEDIASTINUM AND HILAR STRUCTURES: No masses. Contour normal. HEART AND VASCULAR STRUCTURES: Heart normal in size. Normal vasculature. BONES: No acute findings. HARDWARE: None in the chest. OTHER: No other significant finding. IMPRESSION: NO ACUTE RADIOGRAPHIC FINDING IN THE CHEST. TECHNICAL DOCUMENTATION: JOB ID: [id number] [employer]- All Rights Reserved Reading location - IP/workstation name: [email or web address]
[2019-01-10 19:14] LABS: AMORPHOUS SEDIMENT,URINE TRACE /HPF; APPEARANCE,URINE SLIGHTLY-CLOUDY; BILIRUBIN,URINE NEGATIVE (NEGATIVE); COLOR,URINE YELLOW; GLUCOSE, URINE NEGATIVE (NEGATIVE); KETONES,URINE NEGATIVE (NEGATIVE); LEUKOCYTE ESTERASE,URINE NEGATIVE (NEGATIVE); NITRITE,URINE NEGATIVE (NEGATIVE); PROTEIN,URINE NEGATIVE (NEGATIVE); URINE SPECIFIC GRAVITY 1.025
[2019-01-10] MEDS ORDERED: FENTANYL CITRATE INJ/PF 100 MCG/2 ML AMPUL IV ONE (19:28)
[2019-01-10 19:53] LABS: A TYPE INFLUENZA AG NEGATIVE (NEGATIVE); B INFLUENZA AG POSITIVE (NEGATIVE)
[2019-01-10] MEDS ORDERED: RINGERS SOLUTION,LACTATED 1,000 ML IV ONE (20:56)
--- NOTE | 2019-01-10 21:02 | RADIOLOGY REPORT (SQ) ---
EXAM DESCRIPTION: CT ABDOMEN PELVIS WITHOUT IV CONTRAST COMPLETED DATE/TME: 01/10/2019 20:17 CLINICAL HISTORY: flank pain COMPARISON: None Available TECHNIQUE: Contiguous axial images of the abdomen and pelvis were obtained followed by reconstruction images. This exam was performed according to our departmental dose-optimization program, which includes automated exposure control, adjustment of the mA and/or kV according to patient size and/or use of iterative reconstruction technique. FINDINGS: Linear opacities at the lung bases may represent scar versus subsegmental atelectasis. There is atherosclerosis. Gallbladder is contracted otherwise unremarkable by CT criteria. There are nonobstructive stones within both kidneys. There is no hydronephrosis. The liver, spleen, pancreas and kidneys are otherwise within normal limits. Adrenal glands are within normal limits. Aorta is of normal caliber and tapering. There is no free fluid in the abdomen or pelvis. There is no bowel obstruction. There is no stranding of the mesenteric fat to suggest an inflammatory response. The appendix is within normal limits. There is no pericecal inflammation. IMPRESSION: No acute intra-abdominal abnormality.
--- NOTE | 2019-01-10 21:48 | EKG REPORT ---
SEVERITY:- BORDERLINE ECG - SINUS RHYTHM BORDERLINE PROLONGED QT INTERVAL : Confirmed by: Malissa Ivey MD 10-Jan-2019 21:48:00
[2019-01-10 22:04] VITALS: BP 113/52
--- NOTE | 2019-01-12 01:30 | EKG REPORT ---
SEVERITY:- OTHERWISE NORMAL ECG - SINUS BRADYCARDIA : Confirmed by: Malissa Ivey MD 12-Jan-2019 01:30:26
== END 2019-01-10 21:05 | disposition home or self-care (01) ==
LOC: ER 15:29
DX: J11.1 Influenza due to unidentified influenza virus with other respiratory manifestations (principal); R53.1 Weakness; R50.9 Fever, unspecified; W19.XXXA Unspecified fall, initial encounter; I69.964 Other paralytic syndrome following unspecified cerebrovascular disease affecting left non-dominant side
CPT/HCPCS: 93005; 99285; 96361; 51701; 96374; 96375; 36415; 87040; 87086; 82553; 82550; 85025; 80053; 81001; 84484; 82803; 83605; 87804; 71045; 70450; 72125; 74176; 93010; J3010; J1885; J7040; J7120

== ENCOUNTER 2019-01-11 11:20 | Inpatient (IN) | payer MEDICARE ==
[2019-01-11] MEDS ORDERED: NORMAL SALINE 1000 ML 1,000 ML IV ONE (11:37)
--- NOTE | 2019-01-11 11:40 | ER Document Report ---
ED General - General Stated Complaint: WEAKNESS Time Seen by Provider: 01/11/19 11:28 Primary Care Provider: ROX CASEY DO [Primary Care Provider] - Follow up as needed Notes: 84-year-old male presents to the emergency department with a fall and generalized weakness. Patient has been having flulike symptoms the last several days was seen here in the ER and diagnosed with influenza via swab. Patient was given a prescription for Zofran and went home the patient had a fall this morning and hit his head. 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 He is usually able to get around reasonable but since he had the flu is been extraordinarily weak. He has been nauseous she has been really able to eat. The patient had fever and chills. Cough sore throat. Congestion. TRAVEL OUTSIDE OF THE [place] IN LAST 30 DAYS: No - Related Data Allergies/Adverse Reactions: No Known Allergies Allergy (Verified 12/13/15 16:10) Past Medical History - Social History Smoking Status: Unknown if Ever Smoked Family History: Reviewed & Not Pertinent - Past Medical History Cardiac Medical History: Denies: Hx Coronary Artery Disease, Hx Heart Attack, Hx Hypertension Pulmonary Medical History: Denies: Hx Asthma, Hx Bronchitis, Hx COPD, Hx Pneumonia Neurological Medical History: Reports: Hx Cerebrovascular Accident - 1992. Denies: Hx Seizures Renal/ Medical History: Denies: Hx Peritoneal Dialysis GI Medical History: Denies: Hx Hepatitis, Hx Hiatal Hernia, Hx Ulcer Musculoskeletal Medical History: Denies Hx Arthritis Infectious Medical History: Denies: Hx Hepatitis Past Surgical History: Denies: Hx Open Heart Surgery, Hx Pacemaker - Immunizations Hx Diphtheria, Pertussis, Tetanus Vaccination: No Hx Pneumococcal Vaccination: 04/10/13 Review of Systems - Review of Systems Constitutional: Chills, Fever EENT: Nose congestion, Nose discharge, Throat pain. denies: Throat swelling Cardiovascular: Lightheaded. denies: Chest pain Respiratory: Cough. denies: Short of breath Gastrointestinal: Nausea. denies: Diarrhea, Vomiting Genitourinary: denies: Hematuria Neurological/Psychological: Headaches, Other - Fall head injury -: Yes All other systems reviewed and negative Physical Exam - Vital signs Vitals: Temp Resp 99.8 F 16 01/11/19 11:22 03/05/19 11:22 - Notes Notes: GENERAL_APPEARANCE: Frail-appearing, alert, cooperative VITALS: reviewed, see vital signs table. HEAD: no_swelling\tenderness on the head. EYES: PERRL, EOMI, conjunctiva_clear. Right eyebrow swelling NOSE: Clear_nasal_discharge. Turbinate inflammation MOUTH: Dry mucous membranes THROAT: Mild throat_inflammation, no_airway_obstruction. no_lymphadenopathy NECK: supple, no_neck_tenderness, (-)thyromegaly. BACK: no_back_tenderness. CHEST_WALL: no_chest_tenderness. LUNGS: no_wheezing, no_rales, no_rhonchi, (-)accessory muscle use, good air exchange bilateral. HEART: normal_rate, normal_rhythm, normal_S1, normal_S2, (-)S3, (-)S4, no_murmur, no_rub. ABDOMEN: normal_BS, soft, no_abd_tenderness, (-)guarding, (-)rebound, no_organomegaly, no_abd_masses. EXTREMITIES: good pulses in all_extremities, left hip tenderness, no rotation or shortening, no_edema. SKIN: warm, dry, good_color, no_rash. MENTAL_STATUS: speech_clear, oriented_X_3, normal_affect, responds_appropriately to questions. NEURO: Neg Sensory Deficits on exam, chronic left-sided contracture and weakness arm and leg, CN 2-12 intact, DTR 2+ symmetric x 4, No cerbellar signs Course - Re-evaluation Re-evalutation: 01/11/19 11:40 84-year-old male who was diagnosed with influenza yesterday. He appears weak mildly dehydrated we will check a general mental labs will CT his head neck from the fall. He is very old frail deconditioned. 01/11/19 13:48 CT scan shows chronic illnesses there is a eyebrow hematoma noted. Otherwise no intracranial abnormalities no cervical spine fractures. She was given a liter of IV fluid and still feels weak his CK is elevated over thousand. He has some rhabdomyolysis. He is dehydrated. Is globally weak. The patient would just bounce back if I sent him home. I spoken with the hospitalist service. They will hospitalize the patient continue IV fluids. 01/11/19 13:49 There is no hip fracture. The patient had a positive influenza swab yesterday - Vital Signs Vital signs: Temp Pulse Resp BP Pulse Ox 99.8 F 15 121/49 L 97 01/11/19 11:22 01/11/19 12:01 01/11/19 12:01 01/11/19 12:01 - Laboratory Result Diagrams: 01/11/19 10:56 01/11/19 10:56 Laboratory results interpreted by me: 01/11/19 01/11/19 10:56 10:56 WBC 3.5 L RBC 4.13 L Hgb 12.8 L Hct 37.8 L RDW 14.9 H Plt Count 83 L Seg Neutrophils % 80.3 H Chloride 108 H Creatine Kinase 1090 H Total Protein 5.6 L Albumin 3.3 L - Diagnostic Test Radiology reviewed: Reports reviewed Radiology results interpreted by me: 01/11/19 13:38 Chest X-Ray 01/11/19 11:35 IMPRESSION: NO ACUTE RADIOGRAPHIC FINDING IN THE CHEST. Cervical Spine CT 01/11/19 11:36 IMPRESSION: Degenerative disc disease, spondylosis, facet arthropathy. No acute findings. Head CT 01/11/19 11:36 IMPRESSION: Supraorbital hematoma. Chronic microvascular ischemia with no acute intracranial imaging findings. Sinus disease. EVIDENCE OF ACUTE STROKE: NO. Hip X-Ray 01/11/19 12:38 IMPRESSION: No acute fracture or malalignment. - EKG Interpretation by Me EKG shows normal: Sinus rhythm Rate: Bradycardia - 42 Additional EKG results interpreted by me: 01/11/19 13:47 Patient has sinus bradycardia but no acute high-grade AV blocks no acute ST abnormalities noted Discharge - Discharge Clinical Impression: Influenza, Dehydration Fall Qualifiers: Encounter type: initial encounter Qualified Code(s): W19.XXXA - Unspecified fall, initial encounter Rhabdomyolysis Qualifiers: Rhabdomyolysis type: non-traumatic Qualified Code(s): M62.82 - Rhabdomyolysis Contusion, hip Qualifiers: Encounter type: initial encounter Laterality: left Qualified Code(s): S70.02XA - Contusion of left hip, initial encounter Condition: Good Disposition: ADMITTED OBSERVATION Admitting Provider: Hospitalist Unit Admitted: Telemetry Referrals: ROX ACSEY DO [Primary Care Provider] - Follow up as needed
[2019-01-11 12:10] LABS: ABSOLUTE LYMPHOCYTES (AUTO) 0.5 10^3/uL (0.5-4.7); ABSOLUTE MONOCYTES (AUTO) 0.2 10^3/uL (0.1-1.4); ABSOLUTE NEUT (AUTO) 2.8 10^3/uL (1.7-8.2); BASOPHILS % (AUTO) 0.3 % (0-2); HEMATOCRIT 37.8 % (37.9-51.0); HEMOGLOBIN 12.8 g/dL (13.5-17.0); LYMPHOCYTES % (AUTO) 13.3 % (13-45); MEAN CORPUSCULAR HEMOGLOBIN 30.9 pg (27.0-33.4); MEAN CORPUSCULAR HGB CONC 33.8 g/dL (32.0-36.0); MEAN CORPUSCULAR VOLUME 92 fl (80-97); MONOCYTES % (AUTO) 6.1 % (3-13); RED BLOOD COUNT 4.13 10^6/uL (4.35-5.55); RED CELL DISTRIBUTION WIDTH 14.9 % (11.5-14.0); SEGMENTED NEUTROPHILS % (AUTO) 80.3 % (42-78); TOTAL CELLS COUNTED % (AUTO) 100 %; WHITE BLOOD COUNT 3.5 10^3/uL (4.0-10.5)
[2019-01-11 12:20] LABS: ALANINE AMINOTRANSFERASE 27 U/L (21-72); ALBUMIN 3.3 g/dL (3.5-5.0); ALKALINE PHOSPHATASE 38 U/L (38-126); ANION GAP 5 (5-19); ASPARTATE AMINO TRANSFERASE 53 U/L (17-59); BILIRUBIN,DIRECT 0.2 mg/dL (0.0-0.4); BLOOD UREA NITROGEN 20 mg/dL (7-20); CALCIUM 8.4 mg/dL (8.4-10.2); CARBON DIOXIDE 28 mmol/L (22-30); CHLORIDE 108 mmol/L (98-107); CREATINE KINASE 1090 U/L (55-170); GLUCOSE 107 mg/dL (75-110); POTASSIUM 3.9 mmol/L (3.6-5.0); SODIUM 141.3 mmol/L (137-145); TOTAL PROTEIN 5.6 g/dL (6.3-8.2)
[2019-01-11 12:31] LABS: PLATELET COUNT 83 10^3/uL (150-450)
[2019-01-11] MEDS ORDERED: ACETAMINOPHEN 325 MG TABLET PO ONE (12:39)
--- NOTE | 2019-01-11 13:04 | RADIOLOGY REPORT (SQ) ---
EXAM DESCRIPTION: CT HEAD WITHOUT COMPLETED DATE/TIME: 01/11/2019 12:53 pm REASON FOR STUDY: Fall head injury COMPARISON: 01/10/2019 TECHNIQUE: Axial images acquired through the brain without intravenous contrast. Images reviewed wi th bone, brain and subdural windows. Additional sagittal and coronal reconstructions were generated. Images stored on PACS. All CT scanners at this facility use dose modulation, iterative reconstruction, and/or weight based d osing when appropriate to reduce radiation dose to as low as reasonably achievable (ALARA). [facility]: Dose Right [facility]: CareDose [facility]: Dose Right [facility]: Teradose 4D [facility]: [employer] RADIATION DOSE: CT Rad equipment meets quality standard of care and radiation dose reduction techniq ues were employed. CTDIvol: 53.2 mGy. DLP: 1044 mGy-cm. mGy. LIMITATIONS: None. FINDINGS: VENTRICLES: Normal size and contour. CEREBRUM: Lacunar infarct once again seen on the right. No masses. No hemorrhage. No midline shift . No evidence for acute infarction. Areas of low density in the white matter most likely chronic sma ll vessel ischemic changes. CEREBELLUM: No masses. No hemorrhage. No alteration of density. No evidence for acute infarction. EXTRAAXIAL SPACES: No fluid collections. No masses. ORBITS AND GLOBE: No intra- or extraconal masses. Normal contour of globe without masses. CALVARIUM: No fracture. PARANASAL SINUSES: Mild mucoperiosteal thickening in the maxillary sinuses, ethmoid, and frontal sinu ses. SOFT TISSUES: Mild supraorbital soft tissue swelling on the right. OTHER: No other significant finding. IMPRESSION: Supraorbital hematoma. Chronic microvascular ischemia with no acute intracranial imagin g findings. Sinus disease. EVIDENCE OF ACUTE STROKE: NO. COMMENT: Quality ID # [id number]: Final reports with documentation of one or more dose reduction techniques (e.g., Automated exposure control, adjustment of the mA and/or kV according to patient size, use of iterative reconstruction technique) TECHNICAL DOCUMENTATION: JOB ID: [id number] [employer]- All Rights Reserved Reading location - IP/workstation name: [email or web address]
--- NOTE | 2019-01-11 13:08 | RADIOLOGY REPORT (SQ) ---
EXAM DESCRIPTION: CT CERVICAL SPINE WITHOUT COMPLETED DATE/TIME: 01/11/2019 12:53 pm REASON FOR STUDY: Fall head injury COMPARISON: 01/10/2019 TECHNIQUE: Axial images acquired through the cervical spine without intravenous contrast. Images re viewed with lung, soft tissue and bone windows. Reconstructed coronal and sagittal MPR images review ed. Images stored on PACS. All CT scanners at this facility use dose modulation, iterative reconstruction, and/or weight based d osing when appropriate to reduce radiation dose to as low as reasonably achievable (ALARA). [facility]: Dose Right [facility]: CareDose [facility]: Dose Right [facility]: Teradose 4D [facility]: Smart [employer] RADIATION DOSE: CT Rad equipment meets quality standard of care and radiation dose reduction techniq ues were employed. CTDIvol: 17.3 mGy. DLP: 320 mGy-cm. mGy. LIMITATIONS: None. FINDINGS: ALIGNMENT: Anatomic. MINERALIZATION: Normal. VERTEBRAL BODIES: No fractures or dislocation. DISCS: Discs are narrowed from C4-C7 with small marginal osteophytes. FACETS, LATERAL MASSES, POSTERIOR ELEMENTS: Hypertrophic facet changes, left more than right. HARDWARE: None in the spine. VISUALIZED RIBS: No fractures. LUNG APICES AND SOFT TISSUES: No significant or acute findings. OTHER: No other significant finding. IMPRESSION: Degenerative disc disease, spondylosis, facet arthropathy. No acute findings. TECHNICAL DOCUMENTATION: JOB ID: [id number] Quality ID # [id number]: Final reports with documentation of one or more dose reduction techniques (e.g., Au tomated exposure control, adjustment of the mA and/or kV according to patient size, use of iterative reconstruction technique) 2010 [employer]- All Rights Reserved Reading location - IP/workstation name: [email or web address]
--- NOTE | 2019-01-11 13:28 | RADIOLOGY REPORT (SQ) ---
EXAM DESCRIPTION: CHEST SINGLE VIEW COMPLETED DATE/TIME: 01/11/2019 1:15 pm REASON FOR STUDY: weakness COMPARISON: Chest films 12/20/2010, 01/10/2019 EXAM PARAMETERS: NUMBER OF VIEWS: One view. TECHNIQUE: Single frontal radiographic view of the chest acquired. RADIATION DOSE: NA LIMITATIONS: None. FINDINGS: LUNGS AND PLEURA: No opacities, masses or pneumothorax. No pleural effusion. MEDIASTINUM AND HILAR STRUCTURES: No masses. Contour normal. HEART AND VASCULAR STRUCTURES: Heart normal in size. Normal vasculature. BONES: No acute findings. HARDWARE: None in the chest. OTHER: No other significant finding. IMPRESSION: NO ACUTE RADIOGRAPHIC FINDING IN THE CHEST. TECHNICAL DOCUMENTATION: JOB ID: [id number] [employer]- All Rights Reserved Reading location - IP/workstation name: [email or web address]
--- NOTE | 2019-01-11 13:33 | RADIOLOGY REPORT (SQ) ---
EXAM DESCRIPTION: HIP LEFT AP/LATERAL COMPLETED DATE/TIME: 01/11/2019 1:15 pm REASON FOR STUDY: fall pain COMPARISON: CT abdomen pelvis 01/10/2019 NUMBER OF VIEWS: Two views. TECHNIQUE: AP pelvis and additional frog-leg view of the left hip. LIMITATIONS: None. FINDINGS: MINERALIZATION: Normal. LEFT HIP: No fracture or dislocation. No worrisome bone lesions. RIGHT HIP: No fracture or dislocation. No worrisome bone lesions. PUBIS AND ISCHIUM: No fracture. PELVIS: No fracture. SACRUM: No fracture or dislocation. No worrisome bone lesions. LOWER LUMBAR SPINE: Lower lumbar facet arthropathy at L5-S1. SOFT TISSUES: No findings. OTHER: No other significant finding. IMPRESSION: No acute fracture or malalignment. TECHNICAL DOCUMENTATION: JOB ID: [id number] [employer]- All Rights Reserved Reading location - IP/workstation name: [email or web address]
[2019-01-11 14:23] LABS: VENOUS BLOOD BASE EXCESS -5.2 mmol/L; VENOUS BLOOD HCO3 22.6 mmol/L (20-32); VENOUS BLOOD PCO2 53.9 mmHg (35-63); VENOUS BLOOD PH 7.24 (7.30-7.42)
[2019-01-11] MEDS ORDERED: NORMAL SALINE 1000 ML 1,000 ML IV PRN (14:30)
--- NOTE | 2019-01-11 15:30 | PDOC H&P ---
History of Present Illness Admission Date/PCP: 01/11/19 14:07 ROX CASEY DO Patient complains of: 84-year-old male presents to the emergency department with a fall and generalized weakness. Patient has been having flulike symptoms the last several days was seen here in the ER and diagnosed with influenza via swab. Patient was given a prescription for Zofran and went home the patient had a fall this morning and hit his head. 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 He is usually able to get around reasonable but since he had the flu is been extraordinarily weak. He has been nauseous she has been really able to eat. The patient had fever and chills. Cough sore throat. Congestion. History of Present Illness: PRATIMA JOHNSON is a 84 year old male Past Medical History Cardiac Medical History: Denies: Coronary Artery Disease, Myocardial Infarction, Hypertension Pulmonary Medical History: Denies: Asthma, Bronchitis, Chronic Obstructive Pulmonary Disease (COPD), Pneumonia Neurological Medical History: Denies: Seizures Endocrine Medical History: Reports: Hypothyroidism - has not been taking his medications GI Medical History: Denies: Hepatitis, Hiatal Hernia Musculoskeltal Medical History: Denies: Arthritis Hematology: Denies: Anemia, Sickle Cell Disease Past Surgical History Past Surgical History: Denies: Pacemaker Social History Smoking Status: Unknown if Ever Smoked Family History Family History: Hypertension Parental Family History Reviewed: Yes Children Family History Reviewed: Yes Sibling(s) Family History Reviewed.: Yes Medication/Allergy Home Medications: No Home Medications 01/11/19 Allergies/Adverse Reactions: No Known Allergies Allergy (Verified 12/13/15 16:10) Review of Systems Constitutional: PRESENT: anorexia, chills, fatigue, fever(s), weakness. ABSENT: night sweats, weight loss Eyes: ABSENT: visual disturbances Nose, Mouth, and Throat: ABSENT: headache(s) Cardiovascular: ABSENT: chest pain, dyspnea on exertion, edema, palpitations Respiratory: ABSENT: cough, dyspnea, sputum Gastrointestinal: ABSENT: abdominal pain, constipation, diarrhea, dysphagia, nausea, vomiting Neurological: PRESENT: frequent falls. ABSENT: abnormal speech, dizziness, focal weakness, lack of coordination, memory loss Endocrine: ABSENT: heat intolerance Hematologic/Lymphatic: ABSENT: easy bruising Physical Exam Vital Signs: Temp Pulse Resp BP Pulse Ox 99.8 F 21 H 107/68 98 01/11/19 11:22 01/11/19 14:00 01/11/19 13:26 01/11/19 14:00 Intake & Output 01/10/19 01/11/19 01/12/19 06:59 06:59 06:59 Intake Total 1999 Balance 1999 General appearance: PRESENT: no acute distress, cooperative, thin Head exam: PRESENT: atraumatic Eye exam: PRESENT: EOMI, PERRLA Ear exam: PRESENT: TM's normal bilaterally Mouth exam: PRESENT: moist, neck supple Neck exam: PRESENT: full ROM. ABSENT: carotid bruit, JVD, tenderness, thyrome lazaro, tracheal deviation Respiratory exam: PRESENT: clear to auscultation annemarie. ABSENT: accessory muscle use Cardiovascular exam: PRESENT: bradycardia. ABSENT: gallop Vascular exam: PRESENT: normal capillary refill GI/Abdominal exam: PRESENT: normal bowel sounds, soft. ABSENT: ascites, tenderness Extremities exam: ABSENT: calf tenderness, pedal edema Neurological exam: PRESENT: alert, oriented to person, oriented to place, oriented to time, oriented to situation Skin exam: ABSENT: abrasion, pallor, rash Results Laboratory Results: 01/11/19 10:56 01/11/19 10:56 01/11/19 01/11/19 01/11/19 10:56 10:56 14:04 WBC 3.5 L RBC 4.13 L Hgb 12.8 L Hct 37.8 L MCV 92 MCH 30.9 MCHC 33.8 RDW 14.9 H Plt Count 83 L Seg Neutrophils % 80.3 H Lymphocytes % 13.3 Monocytes % 6.1 Eosinophils % 0.0 Basophils % 0.3 Absolute Neutrophils 2.8 Absolute Lymphocytes 0.5 Absolute Monocytes 0.2 Absolute Eosinophils 0.0 Absolute Basophils 0.0 VBG pH VBG pCO2 VBG HCO3 VBG Base Excess Sodium 141.3 Potassium 3.9 Chloride 108 H Carbon Dioxide 28 Anion Gap 5 BUN 20 Creatinine 1.13 Est GFR ( Amer) > 60 Est GFR (Non-Af Amer) > 60 Glucose 107 Lactic Acid 1.9 Calcium 8.4 Total Bilirubin 1.0 AST 53 ALT 27 Alkaline Phosphatase 38 Total Protein 5.6 L Albumin 3.3 L 01/11/19 14:04 WBC RBC Hgb Hct MCV MCH MCHC RDW Plt Count Seg Neutrophils % Lymphocytes % Monocytes % Eosinophils % Basophils % Absolute Neutrophils Absolute Lymphocytes Absolute Monocytes Absolute Eosinophils Absolute Basophils VBG pH 7.24 L VBG pCO2 53.9 VBG HCO3 22.6 VBG Base Excess -5.2 Sodium Potassium Chloride Carbon Dioxide Anion Gap BUN Creatinine Est GFR ( Amer) Est GFR (Non-Af Amer) Glucose Lactic Acid Calcium Total Bilirubin AST ALT Alkaline Phosphatase Total Protein Albumin 01/11/19 01/11/19 10:56 10:56 Creatine Kinase 1090 H Troponin I 0.019 Impressions: Chest X-Ray 01/11/19 11:35 IMPRESSION: NO ACUTE RADIOGRAPHIC FINDING IN THE CHEST. Cervical Spine CT 01/11/19 11:36 IMPRESSION: Degenerative disc disease, spondylosis, facet arthropathy. No acute findings. Head CT 01/11/19 11:36 IMPRESSION: Supraorbital hematoma. Chronic microvascular ischemia with no acute intracranial imaging findings. Sinus disease. EVIDENCE OF ACUTE STROKE: NO. Hip X-Ray 01/11/19 12:38 IMPRESSION: No acute fracture or malalignment. Assessment & Plan - Diagnosis (1) Rhabdomyolysis Qualifiers: Rhabdomyolysis type: non-traumatic Qualified Code(s): M62.82 - Rhabdomyolysis Is this a current diagnosis for this admission?: Yes Plan: will admit to medical services, hydrate and monitor. encourage meals as he has not been eating well (2) Hypothyroidism Qualifiers: Hypothyroidism type: acquired Qualified Code(s): E03.9 - Hypothyroidism, unspecified Is this a current diagnosis for this admission?: Yes Plan: He has not been taking his medications and this could explain his bradycardia and his falls. will check his levels and then decide further course of action (3) History of recent fall Is this a current diagnosis for this admission?: Yes Plan: will get PT to evaluate patient and decide if assistive devices are needed. he may also need short-term rehab given his current level of debility (4) Dehydration Is this a current diagnosis for this admission?: Yes Plan: will start with IV hydration and encourage better oral intake. continue to monitor labs and orthostasis (5) Influenza Is this a current diagnosis for this admission?: Yes Plan: at this point I am not sure that tamiflu will help. will just provide supportive acre and monitoring. - Time Time Spent: 50 to 70 Minutes Medications reviewed and adjusted accordingly: Yes
[2019-01-11] MEDS: ACETAMINOPHEN 325 MG TABLET PO PRN (18:32)
[2019-01-11] MEDS: CHLORPROMAZINE HCL INJ 25 MG/1 ML AMPULE IV PRN (23:30)
[2019-01-12] MEDS: ACETAMINOPHEN 325 MG TABLET PO PRN ×2 (01:44→17:29)
[2019-01-12 05:58] LABS: ANION GAP 5 (5-19); BLOOD UREA NITROGEN 20 mg/dL (7-20); CALCIUM 8.3 mg/dL (8.4-10.2); CARBON DIOXIDE 23 mmol/L (22-30); CHLORIDE 113 mmol/L (98-107); GLUCOSE 87 mg/dL (75-110); POTASSIUM 4.1 mmol/L (3.6-5.0); SODIUM 140.9 mmol/L (137-145)
[2019-01-12 06:09] LABS: CREATINE KINASE 2422 U/L (55-170)
[2019-01-12 07:00] LABS: ABSOLUTE LYMPHOCYTES (AUTO) 0.6 10^3/uL (0.5-4.7); ABSOLUTE MONOCYTES (AUTO) 0.3 10^3/uL (0.1-1.4); ABSOLUTE NEUT (AUTO) 2.1 10^3/uL (1.7-8.2); BASOPHILS % (AUTO) 0.5 % (0-2); EOSINOPHILS % (AUTO) 0.7 % (0-6); HEMATOCRIT 37.3 % (37.9-51.0); HEMOGLOBIN 12.7 g/dL (13.5-17.0); LYMPHOCYTES % (AUTO) 19.2 % (13-45); MEAN CORPUSCULAR HGB CONC 34.2 g/dL (32.0-36.0); MEAN CORPUSCULAR VOLUME 91 fl (80-97); MONOCYTES % (AUTO) 9.6 % (3-13); RED BLOOD COUNT 4.12 10^6/uL (4.35-5.55); RED CELL DISTRIBUTION WIDTH 14.8 % (11.5-14.0); TOTAL CELLS COUNTED % (AUTO) 100 %
[2019-01-12 08:18] LABS: PLATELET COUNT 73 10^3/uL (150-450)
[2019-01-12] MEDS: ENOXAPARIN SODIUM INJ 40 MG/0.4 ML DISP.SYRIN SUBCUT SCH (10:24)
[2019-01-12 12:39] LABS: A TYPE INFLUENZA AG NEGATIVE (NEGATIVE); B INFLUENZA AG NEGATIVE (NEGATIVE)
--- NOTE | 2019-01-12 14:20 | PDOC PROGRESS REPORT ---
Subjective Progress Note for:: 01/12/19 Subjective:: 84-year-old male presents to the emergency department with a fall and generalized weakness. Patient has been having flulike symptoms the last several days was seen here in the ER and diagnosed with influenza via swab. Patient was given a prescription for Zofran and went home the patient had a fall this morning and hit his head. 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 He is usually able to get around reasonable but since he had the flu is been extraordinarily weak. He has been nauseous she has been really able to eat. The patient had fever and chills. Cough sore throat. Congestion. 01/12/2019 84-year-old male admitted with history of falls found to have influenza positive he is on Tamiflu family is giving the history of fall he was found on the floor 2 days ago family does not know how long he was stated on the floor his CPK level went up to 2400 today. He is getting IV fluids normal saline at 75 cc/h plan is to increase the fluids to 125 cc/h and recheck his CPK levels today and tomorrow. Reason For Visit: INFLUENZA Physical Exam Vital Signs: Temp Pulse Resp BP Pulse Ox 97.1 F 83 16 124/94 H 99 01/12/19 07:38 01/12/19 07:38 01/12/19 07:38 01/12/19 07:38 01/12/19 07:38 Intake & Output 01/11/19 01/12/19 01/13/19 06:59 06:59 06:59 Intake Total 2375 343 Output Total 350 Balance 2024 343 Weight 63.3 kg General appearance: PRESENT: no acute distress Head exam: PRESENT: atraumatic Eye exam: PRESENT: PERRLA Mouth exam: PRESENT: moist, tongue midline Neck exam: ABSENT: carotid bruit, JVD, lymphadenopathy, thyromegaly Respiratory exam: PRESENT: clear to auscultation annemarie. ABSENT: rales, rhonchi, wheezes Cardiovascular exam: PRESENT: RRR. ABSENT: diastolic murmur, rubs, systolic murmur GI/Abdominal exam: PRESENT: normal bowel sounds, soft. ABSENT: distended, g uarding, mass, organolmegaly, rebound, tenderness Extremities exam: PRESENT: full ROM. ABSENT: calf tenderness, clubbing, pedal edema Neurological exam: PRESENT: alert, awake, oriented to person, oriented to place, oriented to time, other - Patient has a left-sided weakness. Contracture of the left upper arm. Results Laboratory Results: 01/12/19 05:09 01/12/19 05:09 01/11/19 01/11/19 01/12/19 14:04 14:04 05:09 WBC 3.0 L RBC 4.12 L Hgb 12.7 L Hct 37.3 L MCV 91 MCH 31.0 MCHC 34.2 RDW 14.8 H Plt Count 73 L Seg Neutrophils % 70.0 Lymphocytes % 19.2 Monocytes % 9.6 Eosinophils % 0.7 Basophils % 0.5 Absolute Neutrophils 2.1 Absolute Lymphocytes 0.6 Absolute Monocytes 0.3 Absolute Eosinophils 0.0 Absolute Basophils 0.0 VBG pH 7.24 L VBG pCO2 53.9 VBG HCO3 22.6 VBG Base Excess -5.2 Sodium Potassium Chloride Carbon Dioxide Anion Gap BUN Creatinine Est GFR ( Amer) Est GFR (Non-Af Amer) Glucose Lactic Acid 1.9 Calcium Magnesium TSH 01/12/19 01/12/19 05:09 05:09 WBC RBC Hgb Hct MCV MCH MCHC RDW Plt Count Seg Neutrophils % Lymphocytes % Monocytes % Eosinophils % Basophils % Absolute Neutrophils Absolute Lymphocytes Absolute Monocytes Absolute Eosinophils Absolute Basophils VBG pH VBG pCO2 VBG HCO3 VBG Base Excess Sodium 140.9 Potassium 4.1 Chloride 113 H Carbon Dioxide 23 Anion Gap 5 BUN 20 Creatinine 0.89 Est GFR ( Amer) > 60 Est GFR (Non-Af Amer) > 60 Glucose 87 Lactic Acid Calcium 8.3 L Magnesium 1.9 TSH 13.00 H 01/11/19 01/11/19 01/12/19 10:56 10:56 05:09 Creatine Kinase 1090 H 2422 H Troponin I 0.019 01/12/19 12:35 Creatine Kinase 2179 H Troponin I Impressions: Chest X-Ray 01/11/19 11:35 IMPRESSION: NO ACUTE RADIOGRAPHIC FINDING IN THE CHEST. Cervical Spine CT 01/11/19 11:36 IMPRESSION: Degenerative disc disease, spondylosis, facet arthropathy. No acute findings. Head CT 01/11/19 11:36 IMPRESSION: Supraorbital hematoma. Chronic microvascular ischemia with no acute intracranial imaging findings. Sinus disease. EVIDENCE OF ACUTE STROKE: NO. Hip X-Ray 01/11/19 12:38 IMPRESSION: No acute fracture or malalignment. Assessment & Plan - Diagnosis (1) Rhabdomyolysis Qualifiers: Rhabdomyolysis type: non-traumatic Qualified Code(s): M62.82 - Rhabdomyolysis Is this a current diagnosis for this admission?: Yes Plan: 01/13/2019-patient was admitted for rhabdomyolysis yesterday CPK is thousand went up to 2400 today. He is on IV fluids 75 cc/h to increase the fluids to 125 cc/h today. Plan is to recheck his CPK levels on regular basis. (2) Hypothyroidism Qualifiers: Hypothyroidism type: acquired Qualified Code(s): E03.9 - Hypothyroidism, unspecified Is this a current diagnosis for this admission?: No Plan: 01/12/2019-patient has history of hypothyroidism he stopped taking his thyroid medications TSH today is 13 started on her levothyroxine 0.75 mg today continue the medication while he was in the hospital. (3) History of recent fall Is this a current diagnosis for this admission?: Yes Plan: 01/12/2019-family is giving history of fall on the also telling the history that patient was found on the floor 2 days ago because nobody is at home that time they do not know how long he is laying on the floor. He developed rhabdomyolysis secondary to that. Family is really interested in physical therapy and rehab placement. (4) Influenza Is this a current diagnosis for this admission?: Yes Plan: 01/12/2019-patient was admitted for influenza as per the records swab was done in the ER which was negative. Repeated test shows negative for influenza A and B. Patient is on Tamiflu. (5) Bradycardia Is this a current diagnosis for this admission?: Yes Plan: 01/11/2019 patient heart rate is 42 yesterday. Improved to 83 this morning. Most likely secondary to hypothyroidism. Patient is not taking thyroid supplementations at home. - Time Time Spent with patient: 15-24 minutes Medications reviewed and adjusted accordingly: Yes Anticipated discharge: SNF
[2019-01-12] MEDS: NORMAL SALINE 1000 ML 1,000 ML IV PRN ×2 (14:41→16:53)
[2019-01-12 19:43] LABS: APPEARANCE,URINE CLEAR; BILIRUBIN,URINE NEGATIVE (NEGATIVE); COLOR,URINE YELLOW; GLUCOSE, URINE NEGATIVE (NEGATIVE); KETONES,URINE NEGATIVE (NEGATIVE); LEUKOCYTE ESTERASE,URINE NEGATIVE (NEGATIVE); NITRITE,URINE NEGATIVE (NEGATIVE); PROTEIN,URINE NEGATIVE (NEGATIVE); URINE SPECIFIC GRAVITY 1.019
[2019-01-13] MEDS: LEVOTHYROXINE SODIUM 0.075 MG TABLET PO SCH (06:45)
[2019-01-13] MEDS: ENOXAPARIN SODIUM INJ 40 MG/0.4 ML DISP.SYRIN SUBCUT SCH (08:59)
[2019-01-13 10:37] LABS: ABSOLUTE LYMPHOCYTES (AUTO) 0.6 10^3/uL (0.5-4.7); ABSOLUTE MONOCYTES (AUTO) 0.3 10^3/uL (0.1-1.4); ABSOLUTE NEUT (AUTO) 1.2 10^3/uL (1.7-8.2); BASOPHILS % (AUTO) 0.5 % (0-2); EOSINOPHILS % (AUTO) 0.4 % (0-6); HEMATOCRIT 34.7 % (37.9-51.0); LYMPHOCYTES % (AUTO) 27.8 % (13-45); MEAN CORPUSCULAR HGB CONC 34.5 g/dL (32.0-36.0); MEAN CORPUSCULAR VOLUME 90 fl (80-97); MONOCYTES % (AUTO) 13.2 % (3-13); RED BLOOD COUNT 3.86 10^6/uL (4.35-5.55); RED CELL DISTRIBUTION WIDTH 14.6 % (11.5-14.0); SEGMENTED NEUTROPHILS % (AUTO) 58.1 % (42-78); TOTAL CELLS COUNTED % (AUTO) 100 %; WHITE BLOOD COUNT 2.1 10^3/uL (4.0-10.5)
[2019-01-13 10:45] LABS: ALANINE AMINOTRANSFERASE 31 U/L (21-72); ALBUMIN 2.4 g/dL (3.5-5.0); ALKALINE PHOSPHATASE 32 U/L (38-126); ANION GAP 5 (5-19); ASPARTATE AMINO TRANSFERASE 59 U/L (17-59); BILIRUBIN,DIRECT 0.2 mg/dL (0.0-0.4); BILIRUBIN,TOTAL 0.6 mg/dL (0.2-1.3); BLOOD UREA NITROGEN 14 mg/dL (7-20); CALCIUM 7.8 mg/dL (8.4-10.2); CARBON DIOXIDE 23 mmol/L (22-30); CHLORIDE 111 mmol/L (98-107); CREATINE KINASE 1356 U/L (55-170); GLUCOSE 120 mg/dL (75-110); POTASSIUM 3.7 mmol/L (3.6-5.0); SODIUM 138.8 mmol/L (137-145); TOTAL PROTEIN 4.5 g/dL (6.3-8.2)
[2019-01-13 11:12] LABS: PLATELET COUNT 78 10^3/uL (150-450)
[2019-01-13] MEDS: NORMAL SALINE 1000 ML 1,000 ML IV PRN (13:22)
[2019-01-13] MEDS: ACETAMINOPHEN 325 MG TABLET PO PRN (13:53)
[2019-01-13] MEDS: CHLORPROMAZINE HCL INJ 25 MG/1 ML AMPULE IV PRN (13:53)
--- NOTE | 2019-01-13 14:38 | PDOC PROGRESS REPORT ---
Subjective Progress Note for:: 01/13/19 Subjective:: 84-year-old male presents to the emergency department with a fall and generalized weakness. Patient has been having flulike symptoms the last several days was seen here in the ER and diagnosed with influenza via swab. Patient was given a prescription for Zofran and went home the patient had a fall this morning and hit his head. 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 He is usually able to get around reasonable but since he had the flu is been extraordinarily weak. He has been nauseous she has been really able to eat. The patient had fever and chills. Cough sore throat. Congestion. 01/12/2019 84-year-old male admitted with history of falls found to have influenza positive he is on Tamiflu family is giving the history of fall he was found on the floor 2 days ago family does not know how long he was stated on the floor his CPK level went up to 2400 today. He is getting IV fluids normal saline at 75 cc/h plan is to increase the fluids to 125 cc/h and recheck his CPK levels today and tomorrow. 01/13/2019-no acute events in the last 24 hours. Patient is afebrile. Comfortably in the bed communicating very well. Denies any complaints. Reason For Visit: INFLUENZA Physical Exam Vital Signs: Temp Pulse Resp BP Pulse Ox 99.0 F 46 L 15 108/38 L 96 01/13/19 11:22 01/13/19 14:00 01/13/19 11:22 01/13/19 11:22 01/13/19 11:22 Intake & Output 01/12/19 01/13/19 01/14/19 06:59 06:59 06:59 Intake Total 2375 2158 Output Total 350 Balance 2024 2157 Weight 63.3 kg 63.3 kg General appearance: PRESENT: no acute distress, thin Head exam: PRESENT: atraumatic Eye exam: PRESENT: PERRLA Mouth exam: PRESENT: moist, tongue midline Neck exam: ABSENT: carotid bruit, JVD, lymphadenopathy, thyromegaly Respiratory exam: PRESENT: clear to auscultation annemarie. ABSENT: rales, rhonchi, wheezes Cardiovascular exam: PRESENT: RRR. ABSENT: diastolic murmur, rubs, systolic murmur GI/Abdominal exam: PRESENT: normal bowel sounds, soft. ABSENT: distended, guarding, mass, organolmegaly, rebound, tenderness Extremities exam: PRESENT: full ROM. ABSENT: calf tenderness, clubbing, pedal edema Neurological exam: PRESENT: alert, awake, oriented to person, oriented to place, oriented to time, other - Patient has r left-sided weakness. Results Laboratory Results: 01/13/19 09:43 01/13/19 09:43 01/12/19 01/13/19 01/13/19 18:30 09:43 09:43 WBC 2.1 L RBC 3.86 L Hgb 12.0 L Hct 34.7 L MCV 90 MCH 31.0 MCHC 34.5 RDW 14.6 H Plt Count 78 L Seg Neutrophils % 58.1 Lymphocytes % 27.8 Monocytes % 13.2 H Eosinophils % 0.4 Basophils % 0.5 Absolute Neutrophils 1.2 L Absolute Lymphocytes 0.6 Absolute Monocytes 0.3 Absolute Eosinophils 0.0 Absolute Basophils 0.0 Sodium 138.8 Potassium 3.7 Chloride 111 H Carbon Dioxide 23 Anion Gap 5 BUN 14 Creatinine 0.83 Est GFR ( Amer) > 60 Est GFR (Non-Af Amer) > 60 Glucose 120 H Calcium 7.8 L Magnesium 1.7 Total Bilirubin 0.6 AST 59 ALT 31 Alkaline Phosphatase 32 L Total Protein 4.5 L Albumin 2.4 L Urine Color YELLOW Urine Appearance CLEAR Urine pH 5.0 Ur Specific [place] 1.019 Urine Protein NEGATIVE Urine Glucose (UA) NEGATIVE Urine Ketones NEGATIVE Urine Blood NEGATIVE Urine Nitrite NEGATIVE Ur Leukocyte Esterase NEGATIVE Urine RBC (Auto) 0 01/11/19 01/11/19 01/12/19 10:56 10:56 05:09 Creatine Kinase 1090 H 2422 H Troponin I 0.019 01/12/19 01/13/19 01/13/19 12:35 06:18 09:43 Creatine Kinase 2179 H 1344 H 1356 H Troponin I Impressions: Chest X-Ray 01/11/19 11:35 IMPRESSION: NO ACUTE RADIOGRAPHIC FINDING IN THE CHEST. Cervical Spine CT 01/11/19 11:36 IMPRESSION: Degenerative disc disease, spondylosis, facet arthropathy. No acute findings. Head CT 01/11/19 11:36 IMPRESSION: Supraorbital hematoma. Chronic microvascular ischemia with no acute intracranial imaging findings. Sinus disease. EVIDENCE OF ACUTE STROKE: NO. Hip X-Ray 01/11/19 12:38 IMPRESSION: No acute fracture or malalignment. Assessment & Plan - Diagnosis (1) Rhabdomyolysis Qualifiers: Rhabdomyolysis type: non-traumatic Qualified Code(s): M62.82 - Rhabdomyolysis Is this a current diagnosis for this admission?: Yes (2) Hypothyroidism Qualifiers: Hypothyroidism type: acquired Qualified Code(s): E03.9 - Hypothyroidism, unspecified Is this a current diagnosis for this admission?: No (3) History of recent fall Is this a current diagnosis for this admission?: Yes (4) Influenza Is this a current diagnosis for this admission?: Yes (5) Bradycardia Is this a current diagnosis for this admission?: Yes
[2019-01-14] MEDS: LEVOTHYROXINE SODIUM 0.075 MG TABLET PO SCH (06:09)
[2019-01-14 06:42] LABS: HEMATOCRIT 36.7 % (37.9-51.0); HEMOGLOBIN 12.7 g/dL (13.5-17.0); MEAN CORPUSCULAR HEMOGLOBIN 30.9 pg (27.0-33.4); MEAN CORPUSCULAR HGB CONC 34.6 g/dL (32.0-36.0); MEAN CORPUSCULAR VOLUME 89 fl (80-97); RED BLOOD COUNT 4.11 10^6/uL (4.35-5.55); RED CELL DISTRIBUTION WIDTH 14.9 % (11.5-14.0); WHITE BLOOD COUNT 1.9 10^3/uL (4.0-10.5)
[2019-01-14 06:51] LABS: PLATELET COUNT 82 10^3/uL (150-450)
[2019-01-14 07:00] LABS: ALANINE AMINOTRANSFERASE 24 U/L (21-72); ALBUMIN 2.5 g/dL (3.5-5.0); ALKALINE PHOSPHATASE 35 U/L (38-126); ANION GAP 7 (5-19); ASPARTATE AMINO TRANSFERASE 56 U/L (17-59); BILIRUBIN,DIRECT 0.2 mg/dL (0.0-0.4); BILIRUBIN,TOTAL 0.7 mg/dL (0.2-1.3); BLOOD UREA NITROGEN 13 mg/dL (7-20); CALCIUM 7.9 mg/dL (8.4-10.2); CARBON DIOXIDE 21 mmol/L (22-30); CHLORIDE 111 mmol/L (98-107); CREATINE KINASE 1001 U/L (55-170); GLUCOSE 84 mg/dL (75-110); POTASSIUM 3.7 mmol/L (3.6-5.0); SODIUM 139.1 mmol/L (137-145); TOTAL PROTEIN 4.4 g/dL (6.3-8.2)
[2019-01-14 07:06] LABS: ABSOLUTE LYMPHOCYTES# (MANUAL) 0.7 10^3/uL (0.5-4.7); ABSOLUTE MONOCYTES # (MANUAL) 0.2 10^3/uL (0.1-1.4); BASOPHILS % (MANUAL) 0 % (0-2); EOSINOPHILS % (MANUAL) 0 % (0-6); LYMPHOCYTES % (MANUAL) 36 % (13-45); MONOCYTES % (MANUAL) 12 % (3-13); SEGMENTED NEUTROPHILS % (MAN) 50 % (42-78); TOTAL CELLS COUNTED 50
[2019-01-14 07:08] LABS: ANISOCYTOSIS SLIGHT; PLATELET COMMENT DECREASED
[2019-01-14] MEDS: ENOXAPARIN SODIUM INJ 40 MG/0.4 ML DISP.SYRIN SUBCUT SCH (09:10)
--- NOTE | 2019-01-14 13:54 | PDOC PROGRESS REPORT ---
Subjective Progress Note for:: 01/14/19 Subjective:: 84-year-old male presents to the emergency department with a fall and generalized weakness. Patient has been having flulike symptoms the last several days was seen here in the ER and diagnosed with influenza via swab. Patient was given a prescription for Zofran and went home the patient had a fall this morning and hit his head. 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 He is usually able to get around reasonable but since he had the flu is been extraordinarily weak. He has been nauseous she has been really able to eat. The patient had fever and chills. Cough sore throat. Congestion. 01/12/2019 84-year-old male admitted with history of falls found to have influenza positive he is on Tamiflu family is giving the history of fall he was found on the floor 2 days ago family does not know how long he was stated on the floor his CPK level went up to 2400 today. He is getting IV fluids normal saline at 75 cc/h plan is to increase the fluids to 125 cc/h and recheck his CPK levels today and tomorrow. 01/13/2019-no acute events in the last 24 hours. Patient is afebrile. Comfortably in the bed communicating very well. Denies any complaints. 01/14/2019-no acute events in the last 24 hours. Patient is afebrile. T-max is 98.7. Comfortably in the bed communicating well. He had a left-sided weakness. Agreed to go to a rehab facility. Reason For Visit: INFLUENZA Physical Exam Vital Signs: Temp Pulse Resp BP Pulse Ox 98.7 F 55 L 18 146/56 H 99 01/14/19 11:51 01/14/19 11:51 01/14/19 11:51 01/14/19 11:51 01/14/19 11:51 Intake & Output 01/13/19 01/14/19 01/15/19 06:59 06:59 06:59 Intake Total 2158 1400 Output Total 550 Balance 2158 850 Weight 63.3 kg General appearance: PRESENT: no acute distress Head exam: PRESENT: atraumatic Eye exam: PRESENT: PERRLA Mouth exam: PRESENT: moist, tongue midline Neck exam: ABSENT: carotid bruit, JVD, lymphadenopathy, thyromegaly Respiratory exam: PRESENT: clear to auscultation annemarie. ABSENT: rales, rhonchi, wheezes Cardiovascular exam: PRESENT: RRR. ABSENT: diastolic murmur, rubs, systolic murmur GI/Abdominal exam: PRESENT: normal bowel sounds, soft. ABSENT: distended, guarding, mass, organolmegaly, rebound, tenderness Extremities exam: PRESENT: full ROM. ABSENT: calf tenderness, clubbing, pedal edema Neurological exam: PRESENT: alert, awake, oriented to person, oriented to place, oriented to time, oriented to situation, other - Left-sided weakness Psychiatric exam: PRESENT: appropriate affect, normal mood. ABSENT: homicidal ideation, suicidal ideation Results Laboratory Results: 01/14/19 05:54 01/14/19 05:54 01/14/19 01/14/19 05:54 05:54 WBC 1.9 L RBC 4.11 L Hgb 12.7 L Hct 36.7 L MCV 89 MCH 30.9 MCHC 34.6 RDW 14.9 H Plt Count 82 L Seg Neutrophils % Not Reportable Lymphocytes % Not Reportable Monocytes % Not Reportable Eosinophils % Not Reportable Basophils % Not Reportable Absolute Neutrophils Not Reportable Absolute Lymphocytes Not Reportable Absolute Monocytes Not Reportable Absolute Eosinophils Not Reportable Absolute Basophils Not Reportable Sodium 139.1 Potassium 3.7 Chloride 111 H Carbon Dioxide 21 L Anion Gap 7 BUN 13 Creatinine 0.86 Est GFR ( Amer) > 60 Est GFR (Non-Af Amer) > 60 Glucose 84 Calcium 7.9 L Magnesium 1.8 Total Bilirubin 0.7 AST 56 ALT 24 Alkaline Phosphatase 35 L Total Protein 4.4 L Albumin 2.5 L 01/12/19 18:30 Clean Catch Midstream Urine Culture - Final Mixed Urogenital Shima 01/11/19 01/11/19 01/12/19 10:56 10:56 05:09 Creatine Kinase 1090 H 2422 H Troponin I 0.019 01/12/19 01/13/19 01/13/19 12:35 06:18 09:43 Creatine Kinase 2179 H 1344 H 1356 H Troponin I 01/14/19 05:54 Creatine Kinase 1001 H Troponin I Impressions: Chest X-Ray 01/11/19 11:35 IMPRESSION: NO ACUTE RADIOGRAPHIC FINDING IN THE CHEST. Cervical Spine CT 01/11/19 11:36 IMPRESSION: Degenerative disc disease, spondylosis, facet arthropathy. No acute findings. Head CT 01/11/19 11:36 IMPRESSION: Supraorbital hematoma. Chronic microvascular ischemia with no acute intracranial imaging findings. Sinus disease. EVIDENCE OF ACUTE STROKE: NO. Hip X-Ray 01/11/19 12:38 IMPRESSION: No acute fracture or malalignment. Assessment & Plan - Diagnosis (1) Rhabdomyolysis Qualifiers: Rhabdomyolysis type: non-traumatic Qualified Code(s): M62.82 - Rhabdomyolysis Is this a current diagnosis for this admission?: Yes Plan: 01/13/2019-patient was admitted for rhabdomyolysis yesterday CPK is thousand went up to 2400 today. He is on IV fluids 75 cc/h to increase the fluids to 125 cc/h today. Plan is to recheck his CPK levels on regular basis. 01/14/2019-latest CK came down to 1000 rhabdomyolysis is improving-he is pleasant and IV fluids normal saline at 75 cc/h plan is to discontinue IV fluids today. (2) Hypothyroidism Qualifiers: Hypothyroidism type: acquired Qualified Code(s): E03.9 - Hypothyroidism, unspecified Is this a current diagnosis for this admission?: No Plan: 01/12/2019-patient has history of hypothyroidism he stopped taking his thyroid medications TSH today is 13 started on her levothyroxine 0.75 mg today continue the medication while he was in the hospital. 01/14/2019-patient has history of hypothyroidism not taking medications at home. He was a started on levothyroxine 75 mcg p.o. daily TSH is 13. (3) History of recent fall Is this a current diagnosis for this admission?: Yes Plan: 01/12/2019-family is giving history of fall on the also telling the history that patient was found on the floor 2 days ago because nobody is at home that time they do not know how long he is laying on the floor. He developed rha bdomyolysis secondary to that. Family is really interested in physical therapy and rehab placement. 01/14/2019-patient has history of fall and found to have high CPK levels during the admission the coming down towards the normal. Physical therapy consult was requested family is requesting go to a rehab facility. (4) Influenza Is this a current diagnosis for this admission?: Yes Plan: 01/12/2019-patient was admitted for influenza as per the records swab was done in the ER which was negative. Repeated test shows negative for influenza A and B. Patient is on Tamiflu. 01/14/2019-patient is presently on Tamiflu we plan to do finish 5 days course of therapy. (5) Bradycardia Is this a current diagnosis for this admission?: Yes Plan: The 06/2019-patient's heart rate today is 55 most likely secondary to hypothyroidism he started receiving C levothyroxine. - Time Time Spent with patient: 15-24 minutes Medications reviewed and adjusted accordingly: Yes Anticipated discharge: SNF
[2019-01-14] MEDS: ACETAMINOPHEN 325 MG TABLET PO PRN (19:03)
[2019-01-15] MEDS: ACETAMINOPHEN 325 MG TABLET PO PRN (04:17)
[2019-01-15 05:02] LABS: HEMATOCRIT 35.1 % (37.9-51.0); HEMOGLOBIN 12.1 g/dL (13.5-17.0); MEAN CORPUSCULAR HEMOGLOBIN 30.6 pg (27.0-33.4); MEAN CORPUSCULAR HGB CONC 34.5 g/dL (32.0-36.0); MEAN CORPUSCULAR VOLUME 89 fl (80-97); RED BLOOD COUNT 3.95 10^6/uL (4.35-5.55); RED CELL DISTRIBUTION WIDTH 14.5 % (11.5-14.0); WHITE BLOOD COUNT 1.6 10^3/uL (4.0-10.5)
[2019-01-15 05:21] LABS: ALANINE AMINOTRANSFERASE 32 U/L (21-72); ALBUMIN 2.5 g/dL (3.5-5.0); ALKALINE PHOSPHATASE 40 U/L (38-126); ANION GAP 8 (5-19); ASPARTATE AMINO TRANSFERASE 58 U/L (17-59); BILIRUBIN,DIRECT 0.2 mg/dL (0.0-0.4); BILIRUBIN,TOTAL 0.8 mg/dL (0.2-1.3); BLOOD UREA NITROGEN 15 mg/dL (7-20); CALCIUM 8.2 mg/dL (8.4-10.2); CARBON DIOXIDE 21 mmol/L (22-30); CHLORIDE 107 mmol/L (98-107); CREATINE KINASE 657 U/L (55-170); GLUCOSE 92 mg/dL (75-110); POTASSIUM 3.5 mmol/L (3.6-5.0); SODIUM 135.7 mmol/L (137-145); TOTAL PROTEIN 4.5 g/dL (6.3-8.2)
[2019-01-15 05:28] LABS: PLATELET COUNT 84 10^3/uL (150-450)
[2019-01-15 05:32] LABS: ABSOLUTE LYMPHOCYTES# (MANUAL) 0.5 10^3/uL (0.5-4.7); ABSOLUTE MONOCYTES # (MANUAL) 0.2 10^3/uL (0.1-1.4); ABSOLUTE NEUTROPHILS# (MANUAL) 0.9 10^3/uL (1.7-8.2); BASOPHILS % (MANUAL) 0 % (0-2); EOSINOPHILS % (MANUAL) 0 % (0-6); LYMPHOCYTES % (MANUAL) 34 % (13-45); MONOCYTES % (MANUAL) 12 % (3-13); SEGMENTED NEUTROPHILS % (MAN) 54 % (42-78); TOTAL CELLS COUNTED 50
[2019-01-15 05:33] LABS: PLATELET COMMENT DECREASED; RBC MORPHOLOGY COMMENT NORMO-CYTIC/CHROMIC
[2019-01-15] MEDS: LEVOTHYROXINE SODIUM 0.075 MG TABLET PO SCH (05:43)
[2019-01-15] MEDS: ENOXAPARIN SODIUM INJ 40 MG/0.4 ML DISP.SYRIN SUBCUT SCH (09:16)
[2019-01-15] MEDS: CHLORPROMAZINE HCL INJ 25 MG/1 ML AMPULE IV PRN (10:51)
--- NOTE | 2019-01-15 11:19 | PDOC PROGRESS REPORT ---
Subjective Progress Note for:: 01/15/19 Subjective:: 84-year-old male presents to the emergency department with a fall and generalized weakness. Patient has been having flulike symptoms the last several days was seen here in the ER and diagnosed with influenza via swab. Patient was given a prescription for Zofran and went home the patient had a fall this morning and hit his head. 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 He is usually able to get around reasonable but since he had the flu is been extraordinarily weak. He has been nauseous she has been really able to eat. The patient had fever and chills. Cough sore throat. Congestion. 01/12/2019 84-year-old male admitted with history of falls found to have influenza positive he is on Tamiflu family is giving the history of fall he was found on the floor 2 days ago family does not know how long he was stated on the floor his CPK level went up to 2400 today. He is getting IV fluids normal saline at 75 cc/h plan is to increase the fluids to 125 cc/h and recheck his CPK levels today and tomorrow. 01/13/2019-no acute events in the last 24 hours. Patient is afebrile. Comfortably in the bed communicating very well. Denies any complaints. 01/14/2019-no acute events in the last 24 hours. Patient is afebrile. T-max is 98.7. Comfortably in the bed communicating well. He had a left-sided weakness. Agreed to go to a rehab facility. 12/18/2018-patient fell this morning. No obvious injuries. He was confused and agitated. He received Thorazine. He still confused. Fall precautions are applied. WBC count is 1.6 we going to put him on reverse isolation. Consultation with Dr. Jade was requested. Actually said he is in the room examining the patient. Reason For Visit: INFLUENZA Physical Exam Vital Signs: Temp Pulse Resp BP Pulse Ox 98.1 F 66 20 122/59 L 97 01/15/19 07:36 01/15/19 07:36 01/15/19 07:36 01/15/19 07:36 01/15/19 07:36 Intake & Output 01/14/19 01/15/19 01/16/19 06:59 06:59 07:59 Intake Total 1400 220 Output Total 550 600 Balance 850 -380 Weight 62.2 kg General appearance: PRESENT: no acute distress Head exam: PRESENT: atraumatic Eye exam: PRESENT: PERRLA Mouth exam: PRESENT: moist, tongue midline Neck exam: ABSENT: carotid bruit, JVD, lymphadenopathy, thyromegaly Respiratory exam: PRESENT: clear to auscultation annemarie. ABSENT: rales, rhonchi, wheezes Pulses: PRESENT: normal dorsalis pedis pul GI/Abdominal exam: PRESENT: normal bowel sounds, soft. ABSENT: distended, guarding, mass, organolmegaly, rebound, tenderness Extremities exam: PRESENT: full ROM. ABSENT: calf tenderness, clubbing, pedal edema Neurological exam: PRESENT: altered Psychiatric exam: PRESENT: appropriate affect, normal mood. ABSENT: homicidal ideation, suicidal ideation Results Laboratory Results: 01/15/19 04:43 01/15/19 04:43 01/15/19 01/15/19 04:43 04:43 WBC 1.6 L RBC 3.95 L Hgb 12.1 L Hct 35.1 L MCV 89 MCH 30.6 MCHC 34.5 RDW 14.5 H Plt Count 84 L Seg Neutrophils % Not Reportable Lymphocytes % Not Reportable Monocytes % Not Reportable Eosinophils % Not Reportable Basophils % Not Reportable Absolute Neutrophils Not Reportable Absolute Lymphocytes Not Reportable Absolute Monocytes Not Reportable Absolute Eosinophils Not Reportable Absolute Basophils Not Reportable Sodium 135.7 L Potassium 3.5 L Chloride 107 Carbon Dioxide 21 L Anion Gap 8 BUN 15 Creatinine 0.81 Est GFR ( Amer) > 60 Est GFR (Non-Af Amer) > 60 Glucose 92 Calcium 8.2 L Magnesium 1.8 Total Bilirubin 0.8 AST 58 ALT 32 Alkaline Phosphatase 40 Total Protein 4.5 L Albumin 2.5 L 01/12/19 18:30 Clean Catch Midstream Urine Culture - Final Mixed Urogenital Shima 01/11/19 01/11/19 01/12/19 10:56 10:56 05:09 Creatine Kinase 1090 H 2422 H Troponin I 0.019 01/12/19 01/13/19 01/13/19 12:35 06:18 09:43 Creatine Kinase 2179 H 1344 H 1356 H Troponin I 01/14/19 01/15/19 05:54 04:43 Creatine Kinase 1001 H 657 H Troponin I Impressions: Chest X-Ray 01/11/19 11:35 IMPRESSION: NO ACUTE RADIOGRAPHIC FINDING IN THE CHEST. Cervical Spine CT 01/11/19 11:36 IMPRESSION: Degenerative disc disease, spondylosis, facet arthropathy. No acute findings. Head CT 01/11/19 11:36 IMPRESSION: Supraorbital hematoma. Chronic microvascular ischemia with no acute intracranial imaging findings. Sinus disease. EVIDENCE OF ACUTE STROKE: NO. Hip X-Ray 01/11/19 12:38 IMPRESSION: No acute fracture or malalignment. Assessment & Plan - Diagnosis (1) Rhabdomyolysis Qualifiers: Rhabdomyolysis type: non-traumatic Qualified Code(s): M62.82 - Rhabdomyolysis Is this a current diagnosis for this admission?: Yes Plan: 01/13/2019-patient was admitted for rhabdomyolysis yesterday CPK is thousand went up to 2400 today. He is on IV fluids 75 cc/h to increase the fluids to 125 cc/h today. Plan is to recheck his CPK levels on regular basis. 01/14/2019-latest CK came down to 1000 rhabdomyolysis is improving-he is pleasant and IV fluids normal saline at 75 cc/h plan is to discontinue IV fluids today. 01/15/2019 latest CPK level is 657 improving. Rhabdomyolysis is resolving with IV fluids. He is off the IV fluids since yesterday. Rhabdomyolysis most likely secondary to fall and laying on the floor for on duration and plan is to recheck the labs tomorrow. (2) Hypothyroidism Qualifiers: Hypothyroidism type: acquired Qualified Code(s): E03.9 - Hypothyroidism, unspecified Is this a current diagnosis for this admission?: No Plan: 01/12/2019-patient has history of hypothyroidism he stopped taking his thyroid medications TSH today is 13 started on her levothyroxine 0.75 mg today continue the medication while he was in the hospital. 01/14/2019-patient has history of hypothyroidism not taking medications at home. He was a started on levothyroxine 75 mcg p.o. daily TSH is 13. 01/15/2019-patient has history of hypothyroidism not taking any home medications we started him on levothyroxine 75 mcg daily his pulse rate is improved to 66 today. Plan is to continue the present management. (3) History of recent fall Is this a current diagnosis for this admission?: Yes Plan: 01/12/2019-family is giving history of fall on the also telling the history that patient was found on the floor 2 days ago because nobody is at home that time they do not know how long he is laying on the floor. He developed rhabdomyolysis secondary to that. Family is really interested in physical therapy and rehab placement. 01/14/2019-patient has history of fall and found to have high CPK levels during the admission the coming down towards the normal. Physical therapy consult was requested family is requesting go to a rehab facility. 01/15/2019-patient has history of multiple falls at home. Elevated CK levels during the hospital stay. Improved to 657 today. Patient has another history of fall this morning with no obvious injuries or fractures. Physical therapy consult was requested family is interested in placement. (4) Influenza Is this a current diagnosis for this admission?: Yes Plan: 01/12/2019-patient was admitted for influenza as per the records swab was done in the ER which was negative. Repeated test shows negative for influenza A and B. Patient is on Tamiflu. 01/14/2019-patient is presently on Tamiflu we plan to do finish 5 days course of therapy. 01/15/2019-patient was positive for influenza and repeat influenza came back negative. Patient is going to finish Tamiflu therapy today. (5) Bradycardia Is this a current diagnosis for this admission?: Yes Plan: 01/14/2019-patient's heart rate today is 55 most likely secondary to hypothyroidism he started receiving C levothyroxine. 01/15/2019-patient's heart rate is 66 he came in with a heart rate of 52 most likely secondary to hypothyroidism not on his thyroid supplementation heart rate is improving with thyroid supplementation. On admission TSH is 13. (6) Altered mental status Is this a current diagnosis for this admission?: Yes Plan: 01/15/2019-patient has altered mental status with history of fall this morning most likely secondary to underlying dementia. Be going to do the CT head to rule out any stroke. (7) Neutropenia Is this a current diagnosis for this admission?: Yes Plan: 01/15/2019-patient's WBC is 1.6. Hemoglobin is 12 with a platelet count of 84,000. Requested with Dr. Jade done for workup. At this moment because of pancytopenia is unknown. - Time Time Spent with patient: 15-24 minutes Medications reviewed and adjusted accordingly: Yes Anticipated discharge: SNF
[2019-01-15 11:56] LABS: IRON(TIBC) 18.7 ug/dL (49-181)
[2019-01-15 12:00] LABS: ABSOLUTE RETICS # 0.029 10^6/uL (0.028-0.122); RETICULOCYTE COUNT (AUTO) 0.71 % (0.66-2.85)
[2019-01-15 12:36] LABS: PROTHROMBIN TIME 12.6 SEC (11.4-15.4)
[2019-01-15 12:37] LABS: FIBRINOGEN 389 mg/dL (209-497); PARTIAL THROMBOPLASTIN TIME 29.2 SEC (23.5-35.8)
--- NOTE | 2019-01-15 13:14 | PDOC CONSULTATION ---
Consultation Consult Date: 01/15/19 Attending physician:: BRANDY KELLEY Consult reason:: Pancytopenia History of Present Illness Admission Date/PCP: 01/11/19 14:30 ROX CASEY DO Patient complains of: Fall, weakness History of Present Illness: PRATIMA JOHNSON is a 84 year old male with known history of CVA, left-sided weakness, presented post fall to the ED. He was found down, was found to be in rhabdomyolysis. Upon presentation his total white count was 3.5, ANC was around 1500, platelet count was 97, hemoglobin is 12. His white count today is dropped down to 1.6, ANC is 900, platelets of drifted down to 80. Past Medical History Cardiac Medical History: Denies: Coronary Artery Disease, Myocardial Infarction, Hypertension Pulmonary Medical History: Denies: Asthma, Bronchitis, Chronic Obstructive Pulmonary Disease (COPD), Pneumonia Neurological Medical History: Denies: Seizures Endocrine Medical History: Reports: Hypothyroidism - has not been taking his medications GI Medical History: Denies: Hepatitis, Hiatal Hernia Musculoskeltal Medical History: Denies: Arthritis Hematology: Denies: Anemia, Sickle Cell Disease Past Surgical History Past Surgical History: Denies: Pacemaker Social History Information Source: Relative Smoking Status: Never Smoker Family History Family History: Hypertension Parental Family History Reviewed: Yes Children Family History Reviewed: Yes Sibling(s) Family History Reviewed.: Yes Medication/Allergy Home Medications: No Home Medications 01/11/19 Allergies/Adverse Reactions: No Known Allergies Allergy (Verified 12/13/15 16:10) Review of Systems Constitutional: ABSENT: chills, fever(s), headache(s), weight gain, weight loss Eyes: ABSENT: visual disturbances Ears: ABSENT: hearing changes Cardiovascular: ABSENT: chest pain, dyspnea on exertion, edema, orthropnea, palpitations Respiratory: ABSENT: cough, hemoptysis Gastrointestinal: ABSENT: abdominal pain, constipation, diarrhea, hematemesis, hematochezia, nausea, vomiting Genitourinary: ABSENT: dysuria, hematuria Musculoskeletal: ABSENT: joint swelling Integumentary: ABSENT: rash, wounds Neurological: ABSENT: abnormal gait, abnormal speech, confusion, dizziness, focal weakness, syncope Psychiatric: ABSENT: anxiety, depression, homidical ideation, suicidal ideation Endocrine: ABSENT: cold intolerance, heat intolerance, polydipsia, polyuria Hematologic/Lymphatic: ABSENT: easy bleeding, easy bruising Physical Exam Vital Signs: Temp Pulse Resp BP Pulse Ox 97.7 F 77 17 111/52 L 97 01/15/19 11:04 01/15/19 11:04 01/15/19 11:04 01/15/19 11:04 01/15/19 11:04 Intake & Output 01/14/19 01/15/19 01/16/19 06:59 06:59 07:59 Intake Total 1400 220 Output Total 550 600 Balance 850 -380 Weight 62.2 kg General appearance: PRESENT: no acute distress, well-developed, well-nourished Head exam: PRESENT: atraumatic, normocephalic Eye exam: PRESENT: conjunctiva pink, EOMI, PERRLA. ABSENT: scleral icterus Ear exam: PRESENT: normal external ear exam Mouth exam: PRESENT: moist, tongue midline Neck exam: ABSENT: carotid bruit, JVD, lymphadenopathy, thyromegaly Respiratory exam: PRESENT: clear to auscultation annemarie. ABSENT: rales, rhonchi, wheezes Cardiovascular exam: PRESENT: RRR. ABSENT: diastolic murmur, rubs, systolic murmur Pulses: PRESENT: normal dorsalis pedis pul Vascular exam: PRESENT: normal capillary refill GI/Abdominal exam: PRESENT: normal bowel sounds, soft. ABSENT: distended, guarding, mass, organolmegaly, rebound, tenderness Rectal exam: PRESENT: deferred Extremities exam: PRESENT: full ROM. ABSENT: calf tenderness, clubbing, pedal edema Neurological exam: PRESENT: alert, awake, oriented to person, oriented to place, oriented to time, oriented to situation, CN II-XII grossly intact. ABSENT: motor sensory deficit Psychiatric exam: PRESENT: appropriate affect, normal mood. ABSENT: homicidal ideation, suicidal ideation Skin exam: PRESENT: dry, intact, warm. ABSENT: cyanosis, rash Results Laboratory Results: 01/15/19 04:43 01/15/19 04:43 01/15/19 01/15/19 01/15/19 04:43 04:43 04:43 WBC 1.6 L RBC 3.95 L Hgb 12.1 L Hct 35.1 L MCV 89 MCH 30.6 MCHC 34.5 RDW 14.5 H Plt Count 84 L Seg Neutrophils % Not Reportable Lymphocytes % Not Reportable Monocytes % Not Reportable Eosinophils % Not Reportable Basophils % Not Reportable Absolute Neutrophils Not Reportable Absolute Lymphocytes Not Reportable Absolute Monocytes Not Reportable Absolute Eosinophils Not Reportable Absolute Basophils Not Reportable Retic Count (auto) 0.71 Absolute Retic 0.029 Sodium 135.7 L Potassium 3.5 L Chloride 107 Carbon Dioxide 21 L Anion Gap 8 BUN 15 Creatinine 0.81 Est GFR ( Amer) > 60 Est GFR (Non-Af Amer) > 60 Glucose 92 Calcium 8.2 L Magnesium 1.8 Iron TIBC % Saturation Ferritin Total Bilirubin 0.8 AST 58 ALT 32 Alkaline Phosphatase 40 Total Protein 4.5 L Albumin 2.5 L Vitamin B12 Folate 01/15/19 04:43 WBC RBC Hgb Hct MCV MCH MCHC RDW Plt Count Seg Neutrophils % Lymphocytes % Monocytes % Eosinophils % Basophils % Absolute Neutrophils Absolute Lymphocytes Absolute Monocytes Absolute Eosinophils Absolute Basophils Retic Count (auto) Absolute Retic Sodium Potassium Chloride Carbon Dioxide Anion Gap BUN Creatinine Est GFR ( Amer) Est GFR (Non-Af Amer) Glucose Calcium Magnesium Iron 18.7 L TIBC 212 L % Saturation 9 Ferritin 670.00 H Total Bilirubin AST ALT Alkaline Phosphatase Total Protein Albumin Vitamin B12 248.0 Folate 10.10 01/12/19 18:30 Clean Catch Midstream Urine Culture - Final Mixed Urogenital Shima 01/11/19 01/11/19 01/12/19 10:56 10:56 05:09 Creatine Kinase 1090 H 2422 H Troponin I 0.019 01/12/19 01/13/19 01/13/19 12:35 06:18 09:43 Creatine Kinase 2179 H 1344 H 1356 H Troponin I 01/14/19 01/15/19 05:54 04:43 Creatine Kinase 1001 H 657 H Troponin I Impressions: Chest X-Ray 01/11/19 11:35 IMPRESSION: NO ACUTE RADIOGRAPHIC FINDING IN THE CHEST. Cervical Spine CT 01/11/19 11:36 IMPRESSION: Degenerative disc disease, spondylosis, facet arthropathy. No acute findings. Hip X-Ray 01/11/19 12:38 IMPRESSION: No acute fracture or malalignment. Assessment & Plan - Diagnosis (1) Neutropenia Qualifiers: Neutropenia type: other Qualified Code(s): D70.8 - Other neutropenia Is this a current diagnosis for this admission?: Yes Plan: Probably secondary to myelosuppression from the current process ongoing. Will place protective precautions. Patient is afebrile, does not seem to have any acute infection, so no need for growth factor support right now. (2) Thrombocytopenia Is this a current diagnosis for this admission?: Yes Plan: Possibly DIC, sent DIC panel. May be also myelosuppression. Will follow. (3) Anemia Qualifiers: Anemia type: unspecified type Qualified Code(s): D64.9 - Anemia, unspecified Is this a current diagnosis for this admission?: Yes Plan: Unknown cause as of yet, did send iron studies and B12 workup, will follow. May be anemia of chronic disease. - Time Time Spent: 50 to 70 Minutes - Inpatient Certification Based on my medical assessment, after consideration of the patient's comorbidities, presenting symptoms, or acuity I expect that the services needed warrant INPATIENT care.: Yes I certify that my determination is in accordance with my understanding of Medicare's requirements for reasonable and necessary INPATIENT services [42 CFR 412.3e].: Yes Medical Necessity: Need For IV Fluids, Risk of Complication if Not Cared For in Hospital
--- NOTE | 2019-01-15 13:21 | RADIOLOGY REPORT (SQ) ---
EXAM DESCRIPTION: CT HEAD WITHOUT COMPLETED DATE/TIME: 01/15/2019 12:37 pm REASON FOR STUDY: altered mental status E03.9 HYPOTHYROIDISM, UNSPECIFIED COMPARISON: None. TECHNIQUE: Axial images acquired through the brain without intravenous contrast. Images reviewed wi th bone, brain and subdural windows. Additional sagittal and coronal reconstructions were generated. Images stored on PACS. All CT scanners at this facility use dose modulation, iterative reconstruction, and/or weight based d osing when appropriate to reduce radiation dose to as low as reasonably achievable (ALARA). [facility]: Dose Right [facility]: CareDose [facility]: Dose Right [facility]: Teradose 4D [facility]: Smart [place] RADIATION DOSE: CT Rad equipment meets quality standard of care and radiation dose reduction techniq ues were employed. CTDIvol: 53.2 mGy. DLP: 1150 mGy-cm.mGy. LIMITATIONS: None. FINDINGS: VENTRICLES: Prominent. CEREBRUM: No masses. No hemorrhage. No midline shift. 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 Old lacuna r infarct right internal capsule. Areas of low density in the white matter most likely due to chroni c micro-vascular ischemic change. No evidence for acute infarction. CEREBELLUM: No masses. No hemorrhage. No alteration of density. No evidence for acute infarction. EXTRAAXIAL SPACES: Age-related involutional change. No fluid collections. No masses. ORBITS AND GLOBE: No intra- or extraconal masses. Normal contour of globe without masses. CALVARIUM: No fracture. PARANASAL SINUSES: Fluid in the maxillary sinuses. SOFT TISSUES: No mass or hematoma. OTHER: No other significant finding. IMPRESSION: CHRONIC CHANGES OF ATROPHY AND MICROVASCULAR ISCHEMIA. NO ACUTE PROCESS. EVIDENCE OF ACUTE STROKE: NO. TECHNICAL DOCUMENTATION: JOB ID: [id number] Quality ID # [id number]: Final reports with documentation of one or more dose reduction techniques (e.g., Au tomated exposure control, adjustment of the mA and/or kV according to patient size, use of iterative reconstruction technique) 2010 [employer]- All Rights Reserved Reading location - IP/workstation name: [email or web address]
[2019-01-16] MEDS: LEVOTHYROXINE SODIUM 0.075 MG TABLET PO SCH (05:42)
[2019-01-16 06:36] LABS: ABSOLUTE LYMPHOCYTES (AUTO) 0.7 10^3/uL (0.5-4.7); ABSOLUTE MONOCYTES (AUTO) 0.3 10^3/uL (0.1-1.4); ABSOLUTE NEUT (AUTO) 2.1 10^3/uL (1.7-8.2); BASOPHILS % (AUTO) 0.2 % (0-2); EOSINOPHILS % (AUTO) 0.3 % (0-6); HEMATOCRIT 35.2 % (37.9-51.0); HEMOGLOBIN 12.2 g/dL (13.5-17.0); LYMPHOCYTES % (AUTO) 21.8 % (13-45); MEAN CORPUSCULAR HEMOGLOBIN 30.6 pg (27.0-33.4); MEAN CORPUSCULAR HGB CONC 34.5 g/dL (32.0-36.0); MEAN CORPUSCULAR VOLUME 89 fl (80-97); MONOCYTES % (AUTO) 10.6 % (3-13); RED BLOOD COUNT 3.98 10^6/uL (4.35-5.55); RED CELL DISTRIBUTION WIDTH 14.4 % (11.5-14.0); SEGMENTED NEUTROPHILS % (AUTO) 67.1 % (42-78); TOTAL CELLS COUNTED % (AUTO) 100 %; WHITE BLOOD COUNT 3.1 10^3/uL (4.0-10.5)
[2019-01-16 06:56] LABS: ALANINE AMINOTRANSFERASE 33 U/L (21-72); ALBUMIN 2.6 g/dL (3.5-5.0); ALKALINE PHOSPHATASE 37 U/L (38-126); ANION GAP 7 (5-19); ASPARTATE AMINO TRANSFERASE 52 U/L (17-59); BILIRUBIN,DIRECT 0.2 mg/dL (0.0-0.4); BILIRUBIN,TOTAL 0.9 mg/dL (0.2-1.3); BLOOD UREA NITROGEN 15 mg/dL (7-20); CALCIUM 8.2 mg/dL (8.4-10.2); CARBON DIOXIDE 22 mmol/L (22-30); CHLORIDE 106 mmol/L (98-107); GLUCOSE 94 mg/dL (75-110); POTASSIUM 3.4 mmol/L (3.6-5.0); SODIUM 134.5 mmol/L (137-145); TOTAL PROTEIN 4.6 g/dL (6.3-8.2)
[2019-01-16 07:16] LABS: PLATELET COUNT 96 10^3/uL (150-450)
[2019-01-16] MEDS: ENOXAPARIN SODIUM INJ 40 MG/0.4 ML DISP.SYRIN SUBCUT SCH (08:33)
--- NOTE | 2019-01-16 10:22 | PDOC PROGRESS REPORT ---
Subjective Progress Note for:: 01/16/19 Subjective:: CBC improved, will discontinue neutropenic precautions, as well B12 was noted to be low, will start B12 shots. Reason For Visit: INFLUENZA Physical Exam Vital Signs: Temp Pulse Resp BP Pulse Ox 98.3 F 53 L 18 97/53 L 95 01/16/19 04:22 01/16/19 07:00 01/16/19 04:22 01/16/19 04:22 01/16/19 04:22 Intake & Output 01/15/19 01/16/19 01/17/19 05:59 06:59 06:59 Intake Total Output Total Balance Weight General appearance: PRESENT: no acute distress, well-developed, well-nourished Head exam: PRESENT: atraumatic, normocephalic Eye exam: PRESENT: conjunctiva pink, EOMI, PERRLA. ABSENT: scleral icterus Ear exam: PRESENT: normal external ear exam Mouth exam: PRESENT: moist, tongue midline Neck exam: ABSENT: carotid bruit, JVD, lymphadenopathy, thyromegaly Respiratory exam: PRESENT: clear to auscultation annemarie. ABSENT: rales, rhonchi, wheezes Cardiovascular exam: PRESENT: RRR. ABSENT: diastolic murmur, rubs, systolic mur mur Pulses: PRESENT: normal dorsalis pedis pul Vascular exam: PRESENT: normal capillary refill GI/Abdominal exam: PRESENT: normal bowel sounds, soft. ABSENT: distended, guarding, mass, organolmegaly, rebound, tenderness Rectal exam: PRESENT: deferred Extremities exam: PRESENT: full ROM. ABSENT: calf tenderness, clubbing, pedal edema Neurological exam: PRESENT: alert, awake, oriented to person, oriented to place, oriented to time, oriented to situation, CN II-XII grossly intact. ABSENT: motor sensory deficit Psychiatric exam: PRESENT: appropriate affect, normal mood. ABSENT: homicidal ideation, suicidal ideation Skin exam: PRESENT: dry, intact, warm. ABSENT: cyanosis, rash Results Laboratory Results: 01/16/19 05:25 01/16/19 05:25 01/15/19 01/15/19 01/16/19 04:43 04:43 05:25 WBC 3.1 L RBC 3.98 L Hgb 12.2 L Hct 35.2 L MCV 89 MCH 30.6 MCHC 34.5 RDW 14.4 H Plt Count 96 L Seg Neutrophils % 67.1 Lymphocytes % 21.8 Monocytes % 10.6 Eosinophils % 0.3 Basophils % 0.2 Absolute Neutrophils 2.1 Absolute Lymphocytes 0.7 Absolute Monocytes 0.3 Absolute Eosinophils 0.0 Absolute Basophils 0.0 Retic Count (auto) 0.71 Absolute Retic 0.029 Sodium Potassium Chloride Carbon Dioxide Anion Gap BUN Creatinine Est GFR ( Amer) Est GFR (Non-Af Amer) Glucose Calcium Magnesium Iron 18.7 L TIBC 212 L % Saturation 9 Ferritin 670.00 H Total Bilirubin AST ALT Alkaline Phosphatase Total Protein Albumin Vitamin B12 248.0 Folate 10.10 01/16/19 05:25 WBC RBC Hgb Hct MCV MCH MCHC RDW Plt Count Seg Neutrophils % Lymphocytes % Monocytes % Eosinophils % Basophils % Absolute Neutrophils Absolute Lymphocytes Absolute Monocytes Absolute Eosinophils Absolute Basophils Retic Count (auto) Absolute Retic Sodium 134.5 L Potassium 3.4 L Chloride 106 Carbon Dioxide 22 Anion Gap 7 BUN 15 Creatinine 0.88 Est GFR ( Amer) > 60 Est GFR (Non-Af Amer) > 60 Glucose 94 Calcium 8.2 L Magnesium 1.9 Iron TIBC % Saturation Ferritin Total Bilirubin 0.9 AST 52 ALT 33 Alkaline Phosphatase 37 L Total Protein 4.6 L Albumin 2.6 L Vitamin B12 Folate 01/11/19 01/11/19 01/12/19 10:56 10:56 05:09 Creatine Kinase 1090 H 2422 H Troponin I 0.019 01/12/19 01/13/19 01/13/19 12:35 06:18 09:43 Creatine Kinase 2179 H 1344 H 1356 H Troponin I 01/14/19 01/15/19 05:54 04:43 Creatine Kinase 1001 H 657 H Troponin I Impressions: Chest X-Ray 01/11/19 11:35 IMPRESSION: NO ACUTE RADIOGRAPHIC FINDING IN THE CHEST. Cervical Spine CT 01/11/19 11:36 IMPRESSION: Degenerative disc disease, spondylosis, facet arthropathy. No acute findings. Hip X-Ray 01/11/19 12:38 IMPRESSION: No acute fracture or malalignment. Head CT 01/15/19 00:00 IMPRESSION: CHRONIC CHANGES OF ATROPHY AND MICROVASCULAR ISCHEMIA. NO ACUTE PROCESS. EVIDENCE OF ACUTE STROKE: NO. Assessment & Plan - Diagnosis (1) Neutropenia Qualifiers: Neutropenia type: other Qualified Code(s): D70.8 - Other neutropenia Is this a current diagnosis for this admission?: Yes Plan: Probably reactive, continue with monitoring only improving (2) Thrombocytopenia Is this a current diagnosis for this admission?: Yes Plan: Improved, may be nutritional, patient does have some level of B12 deficiency, replacing this may help as well. (3) Anemia Qualifiers: Anemia type: B12 deficiency Vitamin B12 deficiency anemia type: other dietary B12 deficiency Qualified Code(s): D51.3 - Other dietary vitamin B12 deficiency anemia Is this a current diagnosis for this admission?: Yes Plan: B12 replacement started today, will need 1000 mcg subcu daily for 10 days then monthly thereafter for life. - Time Time Spent with patient: 35 or more minutes - Inpatient Certification Based on my medical assessment, after consideration of the patient's comorbidities, presenting symptoms, or acuity I expect that the services needed warrant INPATIENT care.: Yes I certify that my determination is in accordance with my understanding of Medicare's requirements for reasonable and necessary INPATIENT services [42 CFR 412.3e].: Yes Medical Necessity: Risk of Complication if Not Cared For in Hospital
--- NOTE | 2019-01-16 10:52 | PDOC PROGRESS REPORT ---
Subjective Progress Note for:: 01/16/19 Subjective:: 84-year-old male presents to the emergency department with a fall and generalized weakness. Patient has been having flulike symptoms the last several days was seen here in the ER and diagnosed with influenza via swab. Patient was given a prescription for Zofran and went home the patient had a fall this morning and hit his head. 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 He is usually able to get around reasonable but since he had the flu is been extraordinarily weak. He has been nauseous she has been really able to eat. The patient had fever and chills. Cough sore throat. Congestion. 01/12/2019 84-year-old male admitted with history of falls found to have influenza positive he is on Tamiflu family is giving the history of fall he was found on the floor 2 days ago family does not know how long he was stated on the floor his CPK level went up to 2400 today. He is getting IV fluids normal saline at 75 cc/h plan is to increase the fluids to 125 cc/h and recheck his CPK levels today and tomorrow. 01/13/2019-no acute events in the last 24 hours. Patient is afebrile. Comfortably in the bed communicating very well. Denies any complaints. 01/14/2019-no acute events in the last 24 hours. Patient is afebrile. T-max is 98.7. Comfortably in the bed communicating well. He had a left-sided weakness. Agreed to go to a rehab facility. 12/18/2018-patient fell this morning. No obvious injuries. He was confused and agitated. He received Thorazine. He still confused. Fall precautions are applied. WBC count is 1.6 we going to put him on reverse isolation. Consultation with Dr. Jade was requested. Actually said he is in the room examining the patient. 01/16/2019 patient is comfortable in the sleep no acute events in the last 24 hours. Patient is afebrile. Isolation precautions are discontinued because a WBC count came up to 3.1. Reason For Visit: INFLUENZA Physical Exam Vital Signs: Temp Pulse Resp BP Pulse Ox 98.3 F 53 L 18 97/53 L 95 01/16/19 04:22 03/10/19 07:00 01/16/19 04:22 01/16/19 04:22 01/16/19 04:22 Intake & Output 01/15/19 01/16/19 01/17/19 05:59 06:59 06:59 Intake Total Output Total Balance Weight General appearance: PRESENT: no acute distress Head exam: PRESENT: atraumatic Eye exam: PRESENT: PERRLA Mouth exam: PRESENT: moist, tongue midline Neck exam: ABSENT: carotid bruit, JVD, lymphadenopathy, thyromegaly Respiratory exam: PRESENT: clear to auscultation annemarie. ABSENT: rales, rhonchi, wheezes Cardiovascular exam: PRESENT: RRR. ABSENT: diastolic murmur, rubs, systolic murmur Vascular exam: PRESENT: normal capillary refill Extremities exam: PRESENT: full ROM. ABSENT: calf tenderness, clubbing, pedal edema Neurological exam: PRESENT: alert, awake, oriented to person, oriented to place, oriented to time, oriented to situation, CN II-XII grossly intact. ABSENT: motor sensory deficit Psychiatric exam: PRESENT: appropriate affect, normal mood. ABSENT: homicidal ideation, suicidal ideation Results Laboratory Results: 01/16/19 05:25 01/16/19 05:25 01/15/19 01/15/19 01/16/19 04:43 04:43 05:25 WBC 3.1 L RBC 3.98 L Hgb 12.2 L Hct 35.2 L MCV 89 MCH 30.6 MCHC 34.5 RDW 14.4 H Plt Count 96 L Seg Neutrophils % 67.1 Lymphocytes % 21.8 Monocytes % 10.6 Eosinophils % 0.3 Basophils % 0.2 Absolute Neutrophils 2.1 Absolute Lymphocytes 0.7 Absolute Monocytes 0.3 Absolute Eosinophils 0.0 Absolute Basophils 0.0 Retic Count (auto) 0.71 Absolute Retic 0.029 Sodium Potassium Chloride Carbon Dioxide Anion Gap BUN Creatinine Est GFR ( Amer) Est GFR (Non-Af Amer) Glucose Calcium Magnesium Iron 18.7 L TIBC 212 L % Saturation 9 Ferritin 670.00 H Total Bilirubin AST ALT Alkaline Phosphatase Total Protein Albumin Vitamin B12 248.0 Folate 10.10 01/16/19 05:25 WBC RBC Hgb Hct MCV MCH MCHC RDW Plt Count Seg Neutrophils % Lymphocytes % Monocytes % Eosinophils % Basophils % Absolute Neutrophils Absolute Lymphocytes Absolute Monocytes Absolute Eosinophils Absolute Basophils Retic Count (auto) Absolute Retic Sodium 134.5 L Potassium 3.4 L Chloride 106 Carbon Dioxide 22 Anion Gap 7 BUN 15 Creatinine 0.88 Est GFR ( Amer) > 60 Est GFR (Non-Af Amer) > 60 Glucose 94 Calcium 8.2 L Magnesium 1.9 Iron TIBC % Saturation Ferritin Total Bilirubin 0.9 AST 52 ALT 33 Alkaline Phosphatase 37 L Total Protein 4.6 L Albumin 2.6 L Vitamin B12 Folate 01/11/19 01/11/19 01/12/19 10:56 10:56 05:09 Creatine Kinase 1090 H 2422 H Troponin I 0.019 01/12/19 01/13/19 01/13/19 12:35 06:18 09:43 Creatine Kinase 2179 H 1344 H 1356 H Troponin I 01/14/19 01/15/19 05:54 04:43 Creatine Kinase 1001 H 657 H Troponin I Impressions: Chest X-Ray 01/11/19 11:35 IMPRESSION: NO ACUTE RADIOGRAPHIC FINDING IN THE CHEST. Cervical Spine CT 01/11/19 11:36 IMPRESSION: Degenerative disc disease, spondylosis, facet arthropathy. No acute findings. Hip X-Ray 01/11/19 12:38 IMPRESSION: No acute fracture or malalignment. Head CT 01/15/19 00:00 IMPRESSION: CHRONIC CHANGES OF ATROPHY AND MICROVASCULAR ISCHEMIA. NO ACUTE PROCESS. EVIDENCE OF ACUTE STROKE: NO. Assessment & Plan - Diagnosis (1) Rhabdomyolysis Qualifiers: Rhabdomyolysis type: non-traumatic Qualified Code(s): M62.82 - Rhabdomyolysis Is this a current diagnosis for this admission?: Yes Plan: 01/13/2019-patient was admitted for rhabdomyolysis yesterday CPK is thousand went up to 2400 today. He is on IV fluids 75 cc/h to increase the fluids to 125 cc/h today. Plan is to recheck his CPK levels on regular basis. 01/14/2019-latest CK came down to 1000 rhabdomyolysis is improving-he is pleasant and IV fluids normal saline at 75 cc/h plan is to discontinue IV fluids today. 01/15/2019 latest CPK level is 657 improving. Rhabdomyolysis is resolving with IV fluids. He is off the IV fluids since yesterday. Rhabdomyolysis most likely secondary to fall and laying on the floor for on duration and plan is to recheck the labs tomorrow. 01/16/2019-patient came in with elevated CPK levels most likely secondary to fall. The numbers are coming down with IV fluids. Patient is off the IV fluids right now latest CPK is 657. (2) Hypothyroidism Qualifiers: Hypothyroidism type: acquired Qualified Code(s): E03.9 - Hypothyroidism, unspecified Is this a current diagnosis for this admission?: No Plan: 01/12/2019-patient has history of hypothyroidism he stopped taking his thyroid medications TSH today is 13 started on her levothyroxine 0.75 mg today continue the medication while he was in the hospital. 01/14/2019-patient has history of hypothyroidism not taking medications at home. He was a started on levothyroxine 75 mcg p.o. daily TSH is 13. 01/15/2019-patient has history of hypothyroidism not taking any home medications we started him on levothyroxine 75 mcg daily his pulse rate is improved to 66 today. Plan is to continue the present management. 06/18/2019-patient has history of hypothyroidism on levothyroxine 75 mcg daily his heart rate is improving with medications presently it is 58. (3) History of recent fall Is this a current diagnosis for this admission?: Yes Plan: 01/12/2019-family is giving history of fall on the also telling the history that patient was found on the floor 2 days ago because nobody is at home that time they do not know how long he is laying on the floor. He developed rhabdomyolysis secondary to that. Family is really interested in physical therapy and rehab placement. 01/14/2019-patient has history of fall and found to have high CPK levels during the admission the coming down towards the normal. Physical therapy consult was requested family is requesting go to a rehab facility. 01/15/2019-patient has history of multiple falls at home. Elevated CK levels during the hospital stay. Improved to 657 today. Patient has another history of fall this morning with no obvious injuries or fractures. Physical therapy consult was requested family is interested in placement. 01/16/2019-patient has history of multiple falls at home. He fell in the hospital 2 days ago. PT/OT consult was requested. Family is preferring him to go to a rehab facility. Aspiration fall seizure precautions are in place. (4) Influenza Is this a current diagnosis for this admission?: Yes Plan: 01/12/2019-patient was admitted for influenza as per the records swab was done in the ER which was negative. Repeated test shows negative for influenza A and B. Patient is on Tamiflu. 01/14/2019-patient is presently on Tamiflu we plan to do finish 5 days course of therapy. 01/15/2019-patient was positive for influenza and repeat influenza came back negative. Patient is going to finish Tamiflu therapy today. 01/16/2019-patient was positive for influenza repeat one is negative he completed 5 days course of Tamiflu. (5) Bradycardia Is this a current diagnosis for this admission?: Yes Plan: 01/14/2019-patient's heart rate today is 55 most likely secondary to hypothyroi dism he started receiving C levothyroxine. 01/15/2019-patient's heart rate is 66 he came in with a heart rate of 52 most likely secondary to hypothyroidism not on his thyroid supplementation heart rate is improving with thyroid supplementation. On admission TSH is 13. 06/18/2019-patient heart rate is 58 most likely secondary to hypothyroidism he is receiving levothyroxine supplementation. Plan is to continue the present management. (6) Altered mental status Is this a current diagnosis for this admission?: Yes Plan: 01/15/2019-patient has altered mental status with history of fall this morning most likely secondary to underlying dementia. Be going to do the CT head to rule out any stroke. 01/16/2019-patient altered mental status is resolving. It may be secondary to hospital-induced psychosis/medications. (7) Neutropenia Qualifiers: Neutropenia type: other Qualified Code(s): D70.8 - Other neutropenia Is this a current diagnosis for this admission?: Yes Plan: 01/15/2019-patient's WBC is 1.6. Hemoglobin is 12 with a platelet count of 84,000. Requested with Dr. Jade done for workup. At this moment because of pancytopenia is unknown. 01/16/2019-WBC count is hemoglobin is 0.2 and platelet count is 96,000. Hematology consult was done. neutropenia most likely reactive process - Time Time Spent with patient: 15-24 minutes Medications reviewed and adjusted accordingly: Yes Anticipated discharge: SNF
[2019-01-16] MEDS: CYANOCOBALAMIN (VITAMIN B-12) INJ 1000 MCG/1 ML VIAL SUBCUT SCH (13:08)
[2019-01-16] MEDS: CYCLOSPORINE 0.05% OPH EMULSIO 0.4 ML DROPERETTE OU SCH (16:33)
[2019-01-16] MEDS ORDERED: CYCLOSPORINE 0.05% OPH EMULSIO 0.4 ML DROPERETTE OU SCH (22:00)
[2019-01-17] MEDS: LEVOTHYROXINE SODIUM 0.075 MG TABLET PO SCH (06:27)
[2019-01-17 07:36] LABS: ABSOLUTE EOSINOPHILS # (AUTO) 0.1 10^3/uL (0.0-0.6); ABSOLUTE LYMPHOCYTES (AUTO) 0.8 10^3/uL (0.5-4.7); ABSOLUTE MONOCYTES (AUTO) 0.4 10^3/uL (0.1-1.4); ABSOLUTE NEUT (AUTO) 2.2 10^3/uL (1.7-8.2); BASOPHILS % (AUTO) 0.2 % (0-2); EOSINOPHILS % (AUTO) 2.5 % (0-6); HEMATOCRIT 35.2 % (37.9-51.0); HEMOGLOBIN 12.1 g/dL (13.5-17.0); LYMPHOCYTES % (AUTO) 23.2 % (13-45); MEAN CORPUSCULAR HEMOGLOBIN 30.6 pg (27.0-33.4); MEAN CORPUSCULAR HGB CONC 34.4 g/dL (32.0-36.0); MEAN CORPUSCULAR VOLUME 89 fl (80-97); MONOCYTES % (AUTO) 10.2 % (3-13); PLATELET COUNT 123 10^3/uL (150-450); RED BLOOD COUNT 3.95 10^6/uL (4.35-5.55); RED CELL DISTRIBUTION WIDTH 14.4 % (11.5-14.0); SEGMENTED NEUTROPHILS % (AUTO) 63.9 % (42-78); TOTAL CELLS COUNTED % (AUTO) 100 %; WHITE BLOOD COUNT 3.5 10^3/uL (4.0-10.5)
[2019-01-17 07:54] LABS: ALANINE AMINOTRANSFERASE 35 U/L (21-72); ALBUMIN 2.7 g/dL (3.5-5.0); ALKALINE PHOSPHATASE 39 U/L (38-126); ANION GAP 7 (5-19); ASPARTATE AMINO TRANSFERASE 46 U/L (17-59); BILIRUBIN,DIRECT 0.2 mg/dL (0.0-0.4); BLOOD UREA NITROGEN 19 mg/dL (7-20); CALCIUM 8.3 mg/dL (8.4-10.2); CARBON DIOXIDE 23 mmol/L (22-30); CHLORIDE 106 mmol/L (98-107); GLUCOSE 91 mg/dL (75-110); POTASSIUM 3.7 mmol/L (3.6-5.0); TOTAL PROTEIN 4.6 g/dL (6.3-8.2)
--- NOTE | 2019-01-17 08:17 | PDOC PROGRESS REPORT ---
Subjective Progress Note for:: 01/17/19 Subjective:: No acute events overnight Reason For Visit: INFLUENZA Physical Exam Vital Signs: Temp Pulse Resp BP Pulse Ox 98.0 F 86 18 127/51 H 98 01/17/19 07:30 01/17/19 07:30 01/17/19 07:30 01/17/19 07:30 01/17/19 07:30 Intake & Output 01/16/19 01/17/19 01/18/19 06:59 06:59 06:59 Intake Total 666 Output Total 600 Balance 66 Weight 63.1 kg General appearance: PRESENT: no acute distress, well-developed, well-nourished Head exam: PRESENT: atraumatic, normocephalic Eye exam: PRESENT: conjunctiva pink, EOMI, PERRLA. ABSENT: scleral icterus Ear exam: PRESENT: normal external ear exam Mouth exam: PRESENT: moist, tongue midline Neck exam: ABSENT: carotid bruit, JVD, lymphadenopathy, thyromegaly Respiratory exam: PRESENT: clear to auscultation annemarie. ABSENT: rales, rhonchi, wheezes Cardiovascular exam: PRESENT: RRR. ABSENT: diastolic murmur, rubs, systolic murmur Pulses: PRESENT: normal dorsalis pedis pul Vascular exam: PRESENT: normal capillary refill GI/Abdominal exam: PRESENT: normal bowel sounds, soft. ABSENT: distended, guarding, mass, organolmegaly, rebound, tenderness Rectal exam: PRESENT: deferred Extremities exam: PRESENT: full ROM. ABSENT: calf tenderness, clubbing, pedal edema Neurological exam: PRESENT: alert, awake, oriented to person, oriented to place, oriented to time, oriented to situation, CN II-XII grossly intact. ABSENT: motor sensory deficit Psychiatric exam: PRESENT: appropriate affect, normal mood. ABSENT: homicidal ideation, suicidal ideation Skin exam: PRESENT: dry, intact, warm. ABSENT: cyanosis, rash Results Laboratory Results: 01/17/19 07:02 01/17/19 07:02 01/17/19 01/17/19 07:02 07:02 WBC 3.5 L RBC 3.95 L Hgb 12.1 L Hct 35.2 L MCV 89 MCH 30.6 MCHC 34.4 RDW 14.4 H Plt Count 123 L Seg Neutrophils % 63.9 Lymphocytes % 23.2 Monocytes % 10.2 Eosinophils % 2.5 Basophils % 0.2 Absolute Neutrophils 2.2 Absolute Lymphocytes 0.8 Absolute Monocytes 0.4 Absolute Eosinophils 0.1 Absolute Basophils 0.0 Sodium 136.0 L Potassium 3.7 Chloride 106 Carbon Dioxide 23 Anion Gap 7 BUN 19 Creatinine 0.83 Est GFR ( Amer) > 60 Est GFR (Non-Af Amer) > 60 Glucose 91 Calcium 8.3 L Magnesium 2.0 Total Bilirubin 1.0 AST 46 ALT 35 Alkaline Phosphatase 39 Total Protein 4.6 L Albumin 2.7 L 01/11/19 17:00 Blood Blood Culture - Final NO GROWTH IN 5 DAYS 01/11/19 14:04 Blood Blood Culture - Final NO GROWTH IN 5 DAYS 01/11/19 01/11/19 01/12/19 10:56 10:56 05:09 Creatine Kinase 1090 H 2422 H Troponin I 0.019 01/12/19 01/13/19 01/13/19 12:35 06:18 09:43 Creatine Kinase 2179 H 1344 H 1356 H Troponin I 01/14/19 01/15/19 05:54 04:43 Creatine Kinase 1001 H 657 H Troponin I Impressions: Chest X-Ray 01/11/19 11:35 IMPRESSION: NO ACUTE RADIOGRAPHIC FINDING IN THE CHEST. Cervical Spine CT 01/11/19 11:36 IMPRESSION: Degenerative disc disease, spondylosis, facet arthropathy. No acute findings. Hip X-Ray 01/11/19 12:38 IMPRESSION: No acute fracture or malalignment. Head CT 01/15/19 00:00 IMPRESSION: CHRONIC CHANGES OF ATROPHY AND MICROVASCULAR ISCHEMIA. NO ACUTE PROCESS. EVIDENCE OF ACUTE STROKE: NO. Assessment & Plan - Diagnosis (1) Neutropenia Qualifiers: Neutropenia type: other Qualified Code(s): D70.8 - Other neutropenia Is this a current diagnosis for this admission?: Yes Plan: Mostly resolved to baseline most likely. Will follow. (2) Thrombocytopenia Is this a current diagnosis for this admission?: Yes Plan: Improved to close to 100,000. Will probably remain low. (3) Anemia Qualifiers: Anemia type: B12 deficiency Vitamin B12 deficiency anemia type: other dietary B12 deficiency Qualified Code(s): D51.3 - Other dietary vitamin B12 deficiency anemia Is this a current diagnosis for this admission?: Yes Plan: Continue with B12 shots, some element of anemia of chronic disease as well. - Time Time Spent with patient: 15-24 minutes Disposition: We will follow peripherally
[2019-01-17] MEDS: ENOXAPARIN SODIUM INJ 40 MG/0.4 ML DISP.SYRIN SUBCUT SCH (09:07)
[2019-01-17] MEDS: CYANOCOBALAMIN (VITAMIN B-12) INJ 1000 MCG/1 ML VIAL SUBCUT SCH (09:16)
[2019-01-17] MEDS: CYCLOSPORINE 0.05% OPH EMULSIO 0.4 ML DROPERETTE OU SCH ×2 (09:17→21:09)
--- NOTE | 2019-01-17 11:25 | PDOC PROGRESS REPORT ---
Subjective Progress Note for:: 01/17/19 Subjective:: 84-year-old male presents to the emergency department with a fall and generalized weakness. Patient has been having flulike symptoms the last several days was seen here in the ER and diagnosed with influenza via swab. Patient was given a prescription for Zofran and went home the patient had a fall this morning and hit his head. 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 He is usually able to get around reasonable but since he had the flu is been extraordinarily weak. He has been nauseous she has been really able to eat. The patient had fever and chills. Cough sore throat. Congestion. 01/12/2019 84-year-old male admitted with history of falls found to have influenza positive he is on Tamiflu family is giving the history of fall he was found on the floor 2 days ago family does not know how long he was stated on the floor his CPK level went up to 2400 today. He is getting IV fluids normal saline at 75 cc/h plan is to increase the fluids to 125 cc/h and recheck his CPK levels today and tomorrow. 01/13/2019-no acute events in the last 24 hours. Patient is afebrile. Comfortably in the bed communicating very well. Denies any complaints. 01/14/2019-no acute events in the last 24 hours. Patient is afebrile. T-max is 98.7. Comfortably in the bed communicating well. He had a left-sided weakness. Agreed to go to a rehab facility. 12/18/2018-patient fell this morning. No obvious injuries. He was confused and agitated. He received Thorazine. He still confused. Fall precautions are applied. WBC count is 1.6 we going to put him on reverse isolation. Consultation with Dr. Jade was requested. Actually said he is in the room examining the patient. 01/16/2019 patient is comfortable in the sleep no acute events in the last 24 hours. Patient is afebrile. Isolation precautions are discontinued because a WBC count came up to 3.1. 01/17/2019-no acute events in the last 24 hours. Patient is afebrile. Blood pressure this morning is 127/51. Comfortably in the bed. Communicating okay. viscose department worker consult was requested for placement. Reason For Visit: INFLUENZA Physical Exam Vital Signs: Temp Pulse Resp BP Pulse Ox 98.0 F 86 18 127/51 H 98 01/17/19 07:30 01/17/19 07:30 01/17/19 07:30 01/17/19 07:30 01/17/19 07:30 Intake & Output 01/16/19 01/17/19 01/18/19 06:59 06:59 06:59 Intake Total 666 Output Total 600 Balance 66 Weight 63.1 kg General appearance: PRESENT: no acute distress Head exam: PRESENT: atraumatic Eye exam: PRESENT: PERRLA Mouth exam: PRESENT: moist, tongue midline Neck exam: ABSENT: carotid bruit, JVD, lymphadenopathy, thyromegaly Respiratory exam: PRESENT: clear to auscultation annemarie. ABSENT: rales, rhonchi, wheezes Cardiovascular exam: PRESENT: RRR. ABSENT: diastolic murmur, rubs, systolic murmur Pulses: PRESENT: normal dorsalis pedis pul GI/Abdominal exam: PRESENT: normal bowel sounds, soft. ABSENT: distended, guarding, mass, organolmegaly, rebound, tenderness Extremities exam: PRESENT: full ROM. ABSENT: calf tenderness, clubbing, pedal edema Neurological exam: PRESENT: alert, awake, oriented to person, oriented to place, oriented to time, oriented to situation, other - Patient has left-sided weakness. Psychiatric exam: PRESENT: appropriate affect, normal mood. ABSENT: homicidal ideation, suicidal ideation Results Laboratory Results: 01/17/19 07:02 01/17/19 07:02 01/17/19 01/17/19 07:02 07:02 WBC 3.5 L RBC 3.95 L Hgb 12.1 L Hct 35.2 L MCV 89 MCH 30.6 MCHC 34.4 RDW 14.4 H Plt Count 123 L Seg Neutrophils % 63.9 Lymphocytes % 23.2 Monocytes % 10.2 Eosinophils % 2.5 Basophils % 0.2 Absolute Neutrophils 2.2 Absolute Lymphocytes 0.8 Absolute Monocytes 0.4 Absolute Eosinophils 0.1 Absolute Basophils 0.0 Sodium 136.0 L Potassium 3.7 Chloride 106 Carbon Dioxide 23 Anion Gap 7 BUN 19 Creatinine 0.83 Est GFR ( Amer) > 60 Est GFR (Non-Af Amer) > 60 Glucose 91 Calcium 8.3 L Magnesium 2.0 Total Bilirubin 1.0 AST 46 ALT 35 Alkaline Phosphatase 39 Total Protein 4.6 L Albumin 2.7 L 01/11/19 17:00 Blood Blood Culture - Final NO GROWTH IN 5 DAYS 01/11/19 14:04 Blood Blood Culture - Final NO GROWTH IN 5 DAYS 01/11/19 01/11/19 01/12/19 10:56 10:56 05:09 Creatine Kinase 1090 H 2422 H Troponin I 0.019 01/12/19 01/13/19 01/13/19 12:35 06:18 09:43 Creatine Kinase 2179 H 1344 H 1356 H Troponin I 01/14/19 01/15/19 05:54 04:43 Creatine Kinase 1001 H 657 H Troponin I Impressions: Chest X-Ray 01/11/19 11:35 IMPRESSION: NO ACUTE RADIOGRAPHIC FINDING IN THE CHEST. Cervical Spine CT 01/11/19 11:36 IMPRESSION: Degenerative disc disease, spondylosis, facet arthropathy. No acute findings. Hip X-Ray 01/11/19 12:38 IMPRESSION: No acute fracture or malalignment. Head CT 01/15/19 00:00 IMPRESSION: CHRONIC CHANGES OF ATROPHY AND MICROVASCULAR ISCHEMIA. NO ACUTE PROCESS. EVIDENCE OF ACUTE STROKE: NO. Assessment & Plan - Diagnosis (1) Rhabdomyolysis Qualifiers: Rhabdomyolysis type: non-traumatic Qualified Code(s): M62.82 - Rhabdo myolysis Is this a current diagnosis for this admission?: Yes Plan: 01/13/2019-patient was admitted for rhabdomyolysis yesterday CPK is thousand went up to 2400 today. He is on IV fluids 75 cc/h to increase the fluids to 125 cc/h today. Plan is to recheck his CPK levels on regular basis. 01/14/2019-latest CK came down to 1000 rhabdomyolysis is improving-he is pleasant and IV fluids normal saline at 75 cc/h plan is to discontinue IV fluids today. 01/15/2019 latest CPK level is 657 improving. Rhabdomyolysis is resolving with IV fluids. He is off the IV fluids since yesterday. Rhabdomyolysis most likely secondary to fall and laying on the floor for on duration and plan is to recheck the labs tomorrow. 01/16/2019-patient came in with elevated CPK levels most likely secondary to fall. The numbers are coming down with IV fluids. Patient is off the IV fluids right now latest CPK is 657. 01/17/2019-patient is admitted with rhabdomyolysis secondary to fall. Rhabdomyolysis is resolved. Hemolysis most likely secondary to fall and staying on the floor for a long time. (2) Hypothyroidism Qualifiers: Hypothyroidism type: acquired Qualified Code(s): E03.9 - Hypothyroidism, unspecified Is this a current diagnosis for this admission?: No Plan: 01/12/2019-patient has history of hypothyroidism he stopped taking his thyroid medications TSH today is 13 started on her levothyroxine 0.75 mg today continue the medication while he was in the hospital. 01/14/2019-patient has history of hypothyroidism not taking medications at home. He was a started on levothyroxine 75 mcg p.o. daily TSH is 13. 01/15/2019-patient has history of hypothyroidism not taking any home medications we started him on levothyroxine 75 mcg daily his pulse rate is improved to 66 today. Plan is to continue the present management. 01/16/2019-patient has history of hypothyroidism on levothyroxine 75 mcg daily his heart rate is improving with medications presently it is 58. 01/17/2019-patient has history of hypothyroidism not taking medications at home we restarted his levothyroxine and heart rate is improved up to 86 today. Managed to continue thyroid supplementation. (3) History of recent fall Is this a current diagnosis for this admission?: Yes Plan: 01/12/2019-family is giving history of fall on the also telling the history that patient was found on the floor 2 days ago because nobody is at home that time they do not know how long he is laying on the floor. He developed rhabdomyolysis secondary to that. Family is really interested in physical therapy and rehab placement. 01/14/2019-patient has history of fall and found to have high CPK levels during the admission the coming down towards the normal. Physical therapy consult was requested family is requesting go to a rehab facility. 01/15/2019-patient has history of multiple falls at home. Elevated CK levels during the hospital stay. Improved to 657 today. Patient has another history of fall this morning with no obvious injuries or fractures. Physical therapy consult was requested family is interested in placement. 01/16/2019-patient has history of multiple falls at home. He fell in the hospital 2 days ago. PT/OT consult was requested. Family is preferring him to go to a rehab facility. Aspiration fall seizure precautions are in place. 01/17/2019-patient has history of multiple falls at home and he has also follow here in the hospital family request for placement social and political studies professor taking care of the placement issues. (4) Influenza Is this a current diagnosis for this admission?: Yes Plan: 01/12/2019-patient was admitted for influenza as per the records swab was done in the ER which was negative. Repeated test shows negative for influenza A and B. Patient is on Tamiflu. 01/14/2019-patient is presently on Tamiflu we plan to do finish 5 days course of therapy. 01/15/2019-patient was positive for influenza and repeat influenza came back negative. Patient is going to finish Tamiflu therapy today. 01/16/2019-patient was positive for influenza repeat one is negative he completed 5 days course of Tamiflu. 12/20/2018-patient came in positive for influenza completed the course of Tamiflu for 5 days. (5) Bradycardia Is this a current diagnosis for this admission?: Yes Plan: 01/14/2019-patient's heart rate today is 55 most likely secondary to hypothyroidism he started receiving C levothyroxine. 01/15/2019-patient's heart rate is 66 he came in with a heart rate of 52 most likely secondary to hypothyroidism not on his thyroid supplementation heart rate is improving with thyroid supplementation. On admission TSH is 13. 01/16/2019-patient heart rate is 58 most likely secondary to hypothyroidism he is receiving levothyroxine supplementation. Plan is to continue the present management. 01/17/2019-patient came in with bradycardia heart rate close to 50 most likely secondary to hypothyroidism today's heart rate is 86 improved with levothyroxine. (6) Altered mental status Is this a current diagnosis for this admission?: Yes Plan: 01/15/2019-patient has altered mental status with history of fall this morning most likely secondary to underlying dementia. Be going to do the CT head to rule out any stroke. 01/16/2019-patient altered mental status is resolving. It may be secondary to hospital-induced psychosis/medications. 2018-2 days ago patient was confused and agitated with history of fall. Today is much alert awake communicating well. (7) Neutropenia Qualifiers: Neutropenia type: other Qualified Code(s): D70.8 - Other neutropenia Is this a current diagnosis for this admission?: Yes Plan: 01/15/2019-patient's WBC is 1.6. Hemoglobin is 12 with a platelet count of 84,000. Requested with Dr. Jade done for workup. At this moment because of pancytopenia is unknown. 01/16/2019-WBC count is hemoglobin is 0.2 and platelet count is 96,000. Hematology consult was done. neutropenia most likely reactive process 01/17/2019-WBC count improved to 3500, hemoglobin is 12.1 platelet count is 123 hematology consult was done leukopenia most likely secondary to reactive process as per the laboratory analyst. - Time Time Spent with patient: 15-24 minutes Medications reviewed and adjusted accordingly: Yes Anticipated discharge: SNF
[2019-01-17] MEDS ORDERED: CHLORPROMAZINE HCL INJ 25 MG/1 ML AMPULE IV PRN (21:10)
[2019-01-18] MEDS: LEVOTHYROXINE SODIUM 0.075 MG TABLET PO SCH (05:48)
[2019-01-18 06:03] LABS: ABSOLUTE EOSINOPHILS # (AUTO) 0.1 10^3/uL (0.0-0.6); ABSOLUTE LYMPHOCYTES (AUTO) 0.8 10^3/uL (0.5-4.7); ABSOLUTE MONOCYTES (AUTO) 0.5 10^3/uL (0.1-1.4); ABSOLUTE NEUT (AUTO) 2.4 10^3/uL (1.7-8.2); BASOPHILS % (AUTO) 0.2 % (0-2); HEMATOCRIT 36.7 % (37.9-51.0); HEMOGLOBIN 12.6 g/dL (13.5-17.0); LYMPHOCYTES % (AUTO) 21.8 % (13-45); MEAN CORPUSCULAR HEMOGLOBIN 30.6 pg (27.0-33.4); MEAN CORPUSCULAR HGB CONC 34.3 g/dL (32.0-36.0); MEAN CORPUSCULAR VOLUME 89 fl (80-97); MONOCYTES % (AUTO) 12.2 % (3-13); PLATELET COUNT 155 10^3/uL (150-450); RED BLOOD COUNT 4.12 10^6/uL (4.35-5.55); RED CELL DISTRIBUTION WIDTH 14.3 % (11.5-14.0); SEGMENTED NEUTROPHILS % (AUTO) 62.8 % (42-78); TOTAL CELLS COUNTED % (AUTO) 100 %; WHITE BLOOD COUNT 3.9 10^3/uL (4.0-10.5)
[2019-01-18 06:25] LABS: ALANINE AMINOTRANSFERASE 32 U/L (21-72); ALBUMIN 3.1 g/dL (3.5-5.0); ALKALINE PHOSPHATASE 44 U/L (38-126); ANION GAP 7 (5-19); ASPARTATE AMINO TRANSFERASE 58 U/L (17-59); BILIRUBIN,DIRECT 0.2 mg/dL (0.0-0.4); BILIRUBIN,TOTAL 1.1 mg/dL (0.2-1.3); BLOOD UREA NITROGEN 16 mg/dL (7-20); CALCIUM 8.7 mg/dL (8.4-10.2); CARBON DIOXIDE 24 mmol/L (22-30); CHLORIDE 108 mmol/L (98-107); GLUCOSE 92 mg/dL (75-110); POTASSIUM 3.4 mmol/L (3.6-5.0); SODIUM 139.4 mmol/L (137-145); TOTAL PROTEIN 5.6 g/dL (6.3-8.2)
--- NOTE | 2019-01-18 08:31 | PDOC PROGRESS REPORT ---
Subjective Progress Note for:: 01/18/19 Subjective:: Being looked at for rehab/NH placement, clinically better. Reviewed labs, his wt ct at baseline and plt is normal now Reason For Visit: INFLUENZA Physical Exam Vital Signs: Temp Pulse Resp BP Pulse Ox 97.9 F 61 15 114/63 98 01/18/19 03:28 01/18/19 03:28 01/18/19 03:28 01/18/19 03:28 01/18/19 03:28 Intake & Output 01/17/19 01/18/19 01/19/19 06:59 06:59 06:59 Intake Total 666 803 Output Total 600 Balance 66 803 Weight 63.1 kg 62.7 kg General appearance: PRESENT: no acute distress, well-developed, well-nourished Head exam: PRESENT: atraumatic, normocephalic Eye exam: PRESENT: conjunctiva pink, EOMI, PERRLA. ABSENT: scleral icterus Ear exam: PRESENT: normal external ear exam Mouth exam: PRESENT: moist, tongue midline Neck exam: ABSENT: carotid bruit, JVD, lymphadenopathy, thyromegaly Respiratory exam: PRESENT: clear to auscultation annemarie. ABSENT: rales, rhonchi, wheezes Cardiovascular exam: PRESENT: RRR. ABSENT: diastolic murmur, rubs, systolic murmur Pulses: PRESENT: normal dorsalis pedis pul Vascular exam: PRESENT: normal capillary refill GI/Abdominal exam: PRESENT: normal bowel sounds, soft. ABSENT: distended, guarding, mass, organolmegaly, rebound, tenderness Rectal exam: PRESENT: deferred Extremities exam: PRESENT: full ROM. ABSENT: calf tenderness, clubbing, pedal edema Neurological exam: PRESENT: alert, awake, oriented to person, oriented to place, oriented to time, oriented to situation, CN II-XII grossly intact. ABSENT: motor sensory deficit Psychiatric exam: PRESENT: appropriate affect, normal mood. ABSENT: homicidal ideation, suicidal ideation Skin exam: PRESENT: dry, intact, warm. ABSENT: cyanosis, rash Results Laboratory Results: 01/18/19 05:24 01/18/19 05:24 01/18/19 01/18/19 05:24 05:24 WBC 3.9 L RBC 4.12 L Hgb 12.6 L Hct 36.7 L MCV 89 MCH 30.6 MCHC 34.3 RDW 14.3 H Plt Count 155 Seg Neutrophils % 62.8 Lymphocytes % 21.8 Monocytes % 12.2 Eosinophils % 3.0 Basophils % 0.2 Absolute Neutrophils 2.4 Absolute Lymphocytes 0.8 Absolute Monocytes 0.5 Absolute Eosinophils 0.1 Absolute Basophils 0.0 Sodium 139.4 Potassium 3.4 L Chloride 108 H Carbon Dioxide 24 Anion Gap 7 BUN 16 Creatinine 0.80 Est GFR ( Amer) > 60 Est GFR (Non-Af Amer) > 60 Glucose 92 Calcium 8.7 Magnesium 2.1 Total Bilirubin 1.1 AST 58 ALT 32 Alkaline Phosphatase 44 Total Protein 5.6 L Albumin 3.1 L 01/11/19 01/11/19 01/12/19 10:56 10:56 05:09 Creatine Kinase 1090 H 2422 H Troponin I 0.019 01/12/19 01/13/19 01/13/19 12:35 06:18 09:43 Creatine Kinase 2179 H 1344 H 1356 H Troponin I 01/14/19 01/15/19 05:54 04:43 Creatine Kinase 1001 H 657 H Troponin I Impressions: Chest X-Ray 01/11/19 11:35 IMPRESSION: NO ACUTE RADIOGRAPHIC FINDING IN THE CHEST. Cervical Spine CT 01/11/19 11:36 IMPRESSION: Degenerative disc disease, spondylosis, facet arthropathy. No acute findings. Hip X-Ray 01/11/19 12:38 IMPRESSION: No acute fracture or malalignment. Head CT 01/15/19 00:00 IMPRESSION: CHRONIC CHANGES OF ATROPHY AND MICROVASCULAR ISCHEMIA. NO ACUTE PROCESS. EVIDENCE OF ACUTE STROKE: NO. Assessment & Plan - Diagnosis (1) Neutropenia Qualifiers: Neutropenia type: other Qualified Code(s): D70.8 - Other neutropenia Is this a current diagnosis for this admission?: Yes Plan: Reactive, now at baseline, would f/u in our clinic in about 3-4m (2) Thrombocytopenia Is this a current diagnosis for this admission?: Yes Plan: plt ct normalized (3) Anemia Qualifiers: Anemia type: B12 deficiency Vitamin B12 deficiency anemia type: other dietary B12 deficiency Qualified Code(s): D51.3 - Other dietary vitamin B12 deficiency anemia Is this a current diagnosis for this admission?: Yes Plan: Cont b12 shots daily for total of 10 days, on d/c should receive 1 shot/month for life
[2019-01-18] MEDS: CYANOCOBALAMIN (VITAMIN B-12) INJ 1000 MCG/1 ML VIAL SUBCUT SCH (09:10)
[2019-01-18] MEDS: CYCLOSPORINE 0.05% OPH EMULSIO 0.4 ML DROPERETTE OU SCH (09:11)
[2019-01-18] MEDS: ENOXAPARIN SODIUM INJ 40 MG/0.4 ML DISP.SYRIN SUBCUT SCH (09:12)
[2019-01-18] MEDS ORDERED: POTASSIUM CHLORIDE 10 MEQ CAPSULE.ER PO ONE (11:15)
--- NOTE | 2019-01-18 13:54 | PDOC TRANSFER SUMMARY ---
General - Admit/Disc Date/PCP Admission Date/Primary Care Provider: 01/11/19 14:30 ROX CASEY DO Discharge Date: 01/18/19 - Discharge Diagnosis (1) Rhabdomyolysis Is this a current diagnosis for this admission?: Yes (2) Hypothyroidism Is this a current diagnosis for this admission?: Yes (3) Recurrent falls Is this a current diagnosis for this admission?: Yes - Additional Information Prescriptions: Cyanocobalamin (Vitamin B-12) [Vitamin B-12 Inj 1000 Mcg/1 ml Vial] 1,000 mcg HUNT BCUT DAILY 8 Days #8 vial Levothyroxine Sodium [Synthroid 0.075 mg Tablet] 0.075 mg PO Q6AM #30 tablet Home Medications: Cyanocobalamin (Vitamin B-12) [Vitamin B-12 Inj 1000 Mcg/1 ml Vial] 1,000 mcg SUBCUT DAILY 8 Days #8 vial 01/18/19 Levothyroxine Sodium [Synthroid 0.075 mg Tablet] 0.075 mg PO Q6AM #30 tablet 01/18/19 History of Present Illness Admission Date/PCP: 01/11/19 14:30 ROX CASEY DO Patient complains of: weakness History of Present Illness: Admitting hospitalist's H&P: This is an 84-year-old male presents to the emergency department with a fall and generalized weakness. Patient has been having flulike symptoms the last several days was seen here in the ER and diagnosed with Influenza via swab. Patient was given a prescription for Zofran and went home the patient had a fall this morning and hit his head. 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 He is usually able to get around reasonable but since he had the flu is been extraordinarily weak. He has been nauseous she has been really able to eat. The patient had fever and chills, cough, sore throat. Hospital Course Hospital Course: This is an 84-year-old male with a PMH of hypothyroidism, history of CVA with left sided residual weakness, not on any home medication as per , he just throws his medications away and has not been taking any for the past several months. He initially presented with generalized weakness and flu like symptoms and was treated with Tamiflu. He presented on day of admission after falling at home from worsening generalized weakness. He was found to have rhabdomyolysis with mild YEN. He was started on IV fluids which did significantly improve his Crea and CK. His TSH did come back elevated. He was restarted on synthroid. He also had acute neutropenia and thrombocytopenia. Hematology was conuslted and deemed both were reactive. WBC and platelets did recover. He was also started on B12 injections. Hematology recommend total of 10 days of daily B12 injection and then monthly injection thereafter. He does have history of falls and was evaluated by PT. He will be going to SNF/rehab. Physical Exam Vital Signs: Temp Pulse Resp BP Pulse Ox 97.3 F 56 L 17 121/54 L 99 01/18/19 12:26 01/18/19 12:26 01/18/19 12:26 01/18/19 12:26 01/18/19 12:26 Intake & Output 01/17/19 01/18/19 01/19/19 06:59 06:59 06:59 Intake Total 666 803 600 Output Total 600 Balance 66 803 600 Weight 139 lb 1.787 oz 138 lb 3.677 oz 138 lb 3.677 oz General appearance: PRESENT: no acute distress, well-developed, well-nourished Head exam: PRESENT: atraumatic, normocephalic Eye exam: PRESENT: conjunctiva pink, EOMI, PERRLA. ABSENT: scleral icterus Ear exam: PRESENT: normal external ear exam Neck exam: ABSENT: carotid bruit, JVD, lymphadenopathy, thyromegaly Respiratory exam: PRESENT: clear to auscultation annemarie. ABSENT: rales, rhonchi, wheezes Cardiovascular exam: PRESENT: RRR. ABSENT: diastolic murmur, rubs, systolic murmur Pulses: PRESENT: normal dorsalis pedis pul GI/Abdominal exam: PRESENT: normal bowel sounds, soft. ABSENT: distended, guarding, mass, organolmegaly, rebound, tenderness Rectal exam: PRESENT: deferred Neurological exam: PRESENT: alert, awake, oriented to person, oriented to place, CN II-XII grossly intact, motor sensory deficit - chronic left sided weakness Results Laboratory Results: 01/18/19 05:24 01/18/19 05:24 01/18/19 01/18/19 05:24 05:24 WBC 3.9 L RBC 4.12 L Hgb 12.6 L Hct 36.7 L MCV 89 MCH 30.6 MCHC 34.3 RDW 14.3 H Plt Count 155 Seg Neutrophils % 62.8 Lymphocytes % 21.8 Monocytes % 12.2 Eosinophils % 3.0 Basophils % 0.2 Absolute Neutrophils 2.4 Absolute Lymphocytes 0.8 Absolute Monocytes 0.5 Absolute Eosinophils 0.1 Absolute Basophils 0.0 Sodium 139.4 Potassium 3.4 L Chloride 108 H Carbon Dioxide 24 Anion Gap 7 BUN 16 Creatinine 0.80 Est GFR ( Amer) > 60 Est GFR (Non-Af Amer) > 60 Glucose 92 Calcium 8.7 Magnesium 2.1 Total Bilirubin 1.1 AST 58 ALT 32 Alkaline Phosphatase 44 Total Protein 5.6 L Albumin 3.1 L 01/11/19 01/11/19 01/12/19 10:56 10:56 05:09 Creatine Kinase 1090 H 2422 H Troponin I 0.019 01/12/19 01/13/19 01/13/19 12:35 06:18 09:43 Creatine Kinase 2179 H 1344 H 1356 H Troponin I 01/14/19 01/15/19 05:54 04:43 Creatine Kinase 1001 H 657 H Troponin I Impressions: Chest X-Ray 01/11/19 11:35 IMPRESSION: NO ACUTE RADIOGRAPHIC FINDING IN THE CHEST. Cervical Spine CT 01/11/19 11:36 IMPRESSION: Degenerative disc disease, spondylosis, facet arthropathy. No acute findings. Hip X-Ray 01/11/19 12:38 IMPRESSION: No acute fracture or malalignment. Head CT 01/15/19 00:00 IMPRESSION: CHRONIC CHANGES OF ATROPHY AND MICROVASCULAR ISCHEMIA. NO ACUTE PROCESS. EVIDENCE OF ACUTE STROKE: NO. Qualifiers - * PATIENT BEING DISCHARGED WITH ANY OF THE FOLLOWING DIAGNOSIS: No
[2019-01-18 16:06] VITALS: BP 109/46
== END 2019-01-18 18:00 | DRG 558 ==
LOC: ER 11:20 → EH 14:07 → OBSVTOIN 14:30 → 4W 17:26
PROVIDERS: ADMIT Internal Medicine; ATTEND Internal Medicine
DX: M62.82 Rhabdomyolysis (principal); I69.354 Hemiplegia and hemiparesis following cerebral infarction affecting left non-dominant side; N17.9 Acute kidney failure, unspecified; E03.9 Hypothyroidism, unspecified; R29.6 Repeated falls; D70.8 Other neutropenia; D69.6 Thrombocytopenia, unspecified; J11.1 Influenza due to unidentified influenza virus with other respiratory manifestations; D51.3 Other dietary vitamin B12 deficiency anemia; E86.0 Dehydration; S70.02XA Contusion of left hip, initial encounter; Z82.49 Family history of ischemic heart disease and other diseases of the circulatory system; W18.30XA Fall on same level, unspecified, initial encounter; Y92.019 Unspecified place in single-family (private) house as the place of occurrence of the external cause; W01.0XXA Fall on same level from slipping, tripping and stumbling without subsequent striking against object, initial encounter; Y92.230 Patient room in hospital as the place of occurrence of the external cause; Z91.14 Patient's other noncompliance with medication regimen
CPT/HCPCS: 36415; 70450; 71045; 72125; 74176; 80048; 80053; 81001; 82550; 82553; 82607; 82728; 82746; 82803; 83540; 83550; 83605; 83735; 84132; 84443; 84484; 85025; 85045; 85384; 85610; 85730; 87040; 87086; 87804; 93005; 93010; 96360; 99285; J3230; J3420; J3490; J7030

== ENCOUNTER → 2020-04-03 | Outpatient (CLI) | payer MEDICARE ==
--- NOTE | 2020-04-03 16:27 | RADIOLOGY REPORT (SQ) ---
EXAM DESCRIPTION: CHEST PA/LATERAL IMAGES COMPLETED DATE/TIME: 04/03/2020 2:52 pm REASON FOR STUDY: CHEST PAIN, UNSPECIFIED COMPARISON: AP view of the chest from 06/09/2019. EXAM PARAMETERS: NUMBER OF VIEWS: Two views. TECHNIQUE: PA and lateral views of the chest were obtained. RADIATION DOSE: NA. LIMITATIONS: None. FINDINGS: LUNGS AND PLEURA: No consolidation, pleural effusion or pneumothorax. MEDIASTINUM AND HILAR STRUCTURES: No mediastinal or hilar contour abnormality. HEART AND VASCULAR STRUCTURES: The cardiac silhouette and pulmonary vasculature are within normal [place] its. BONES: No acute findings. HARDWARE: None in the chest. OTHER: No other finding. IMPRESSION: No acute cardiopulmonary process. TECHNICAL DOCUMENTATION: JOB ID: [id number] 2010 [employer]- All Rights Reserved Reading location - IP/workstation name: [email or web address]
--- NOTE | 2020-04-03 16:52 | RADIOLOGY REPORT (SQ) ---
EXAM DESCRIPTION: HIP RIGHT AP/LATERAL IMAGES COMPLETED DATE/TIME: 04/03/2020 2:52 pm REASON FOR STUDY: PAIN IN RT HIP M25.551 PAIN IN RIGHT HIP R07.9 CHEST PAIN, UNSPECIFIED COMPARISON: None. NUMBER OF VIEWS: Two views. TECHNIQUE: AP pelvis and additional frog-leg view of the right hip. LIMITATIONS: None. FINDINGS: MINERALIZATION: Normal. RIGHT HIP: No fracture or dislocation. No worrisome bone lesions. LEFT HIP: No fracture or dislocation. No worrisome bone lesions. PUBIS AND ISCHIUM: No fracture. PELVIS: No fracture. SACRUM: No fracture or dislocation. No worrisome bone lesions. LOWER LUMBAR SPINE: No fracture or dislocation. No worrisome bone lesions. No significant disc disea se. SOFT TISSUES: No findings. OTHER: No other significant finding. IMPRESSION: NEGATIVE STUDY OF THE RIGHT HIP. NO RADIOGRAPHIC EVIDENCE OF ACUTE INJURY. TECHNICAL DOCUMENTATION: JOB ID: [id number] 2010 [employer]- All Rights Reserved Reading location - IP/workstation name: [email or web address]
== END ==
LOC: OD 14:26
PROVIDERS: ATTEND Family Medicine
DX: M25.551 Pain in right hip (principal); R07.9 Chest pain, unspecified
CPT/HCPCS: 71046

== ENCOUNTER 2020-08-14 18:52 | Emergency (ER) | payer MEDICARE ==
--- NOTE | 2020-08-14 20:16 | ER Document Report ---
ED Medical Screen (RME) - General Chief Complaint: Vomiting Stated Complaint: VOMITING,WEAKNESS Time Seen by Provider: 08/14/20 20:12 Primary Care Provider: ROX CASEY DO [Primary Care Provider] - Follow up as needed Mode of Arrival: Wheelchair Information source: Patient Notes: 85-year-old presented to ED for cough cold congestion since Thursday nausea and vomiting today sleeping all day today. states he has been more confused than normal. He does have dementia thyroid problems and a stroke. Patient is a in his normal state right now. She states that he has vomited today and he does have emesis or sputum on his shirt it is a greenish color. states that the niece pulled her on the bed already drawn with blood but there is been no blood ordered or sent. I have greeted and performed a rapid initial assessment of this patient. A comprehensive ED assessment and evaluation of the patient, analysis of test results and completion of medical decision making process will be conducted by an additional ED providers. TRAVEL OUTSIDE OF THE [place] IN LAST 30 DAYS: No - Related Data Allergies/Adverse Reactions: No Known Allergies Allergy (Verified 12/13/15 16:10) Past Medical History - Past Medical History Cardiac Medical History: Denies: Hx Coronary Artery Disease, Hx Heart Attack, Hx Hypertension Pulmonary Medical History: Denies: Hx Asthma, Hx Bronchitis, Hx COPD, Hx Pneumonia Neurological Medical History: Reports: Hx Cerebrovascular Accident - 1992. Denies: Hx Seizures Endocrine Medical History: Reports: Hx Hypothyroidism - has not been taking his medications Renal/ Medical History: Denies: Hx Peritoneal Dialysis GI Medical History: Denies: Hx Hepatitis, Hx Hiatal Hernia, Hx Ulcer Musculoskeltal Medical History: Denies Hx Arthritis Infectious Medical History: Denies: Hx Hepatitis Past Surgical History: Denies: Hx Open Heart Surgery, Hx Pacemaker - Immunizations Hx Diphtheria, Pertussis, Tetanus Vaccination: No Physical Exam - Vital signs Vitals: Temp Pulse Resp BP Pulse Ox 98.6 F 88 16 109/67 97 08/14/20 19:08 08/14/20 19:08 08/14/20 19:08 08/14/20 19:08 08/14/20 19:08 Course - Vital Signs Vital signs: Temp Pulse Resp BP Pulse Ox 98.6 F 88 16 109/67 97 08/14/20 19:08 08/14/20 19:08 08/14/20 19:08 08/14/20 19:08 08/14/20 19:08 Doctor's Discharge - Discharge Referrals: ROX CASEY DO [Primary Care Provider] - Follow up as needed
--- NOTE | 2020-08-14 21:50 | RADIOLOGY REPORT (SQ) ---
XR CHEST 1 VIEW HISTORY: Syncope. COMPARISON: 04/03/2020 FINDINGS: The heart size is within normal limits. There is no pulmonary vascular congestion. No consolidation, pleural effusion, or pneumothorax is seen. No acute bony findings are seen. IMPRESSION: No evidence of acute cardiopulmonary disease.
[2020-08-14 22:55] VITALS: BP 120/61
[2020-08-14 23:03] LABS: ABSOLUTE EOSINOPHILS # (AUTO) 0.1 10^3/uL (0.0-0.6); ABSOLUTE LYMPHOCYTES (AUTO) 1.3 10^3/uL (0.5-4.7); ABSOLUTE MONOCYTES (AUTO) 0.5 10^3/uL (0.1-1.4); ABSOLUTE NEUT (AUTO) 5.1 10^3/uL (1.7-8.2); BASOPHILS % (AUTO) 0.2 % (0-2); EOSINOPHILS % (AUTO) 1.1 % (0-6); HEMATOCRIT 44.5 % (37.9-51.0); HEMOGLOBIN 15.2 g/dL (13.5-17.0); LYMPHOCYTES % (AUTO) 18.1 % (13-45); MEAN CORPUSCULAR HGB CONC 34.1 g/dL (32.0-36.0); MEAN CORPUSCULAR VOLUME 91 fl (80-97); MONOCYTES % (AUTO) 6.5 % (3-13); PLATELET COUNT 143 10^3/uL (150-450); RED CELL DISTRIBUTION WIDTH 14.8 % (11.5-14.0); SEGMENTED NEUTROPHILS % (AUTO) 74.1 % (42-78); TOTAL CELLS COUNTED % (AUTO) 100 %; WHITE BLOOD COUNT 6.9 10^3/uL (4.0-10.5)
[2020-08-14 23:26] LABS: ALBUMIN 4.4 g/dL (3.5-5.0); ALKALINE PHOSPHATASE 62 U/L (38-126); ANION GAP 10 (5-19); ASPARTATE AMINO TRANSFERASE 26 U/L (17-59); BILIRUBIN,DIRECT 0.3 mg/dL (0.0-0.4); BILIRUBIN,TOTAL 1.9 mg/dL (0.2-1.3); BLOOD UREA NITROGEN 15 mg/dL (7-20); CALCIUM 9.6 mg/dL (8.4-10.2); CARBON DIOXIDE 25 mmol/L (22-30); CHLORIDE 106 mmol/L (98-107); GLUCOSE 104 mg/dL (75-110); POTASSIUM 3.8 mmol/L (3.6-5.0); TOTAL PROTEIN 7.1 g/dL (6.3-8.2)
== END 2020-08-14 23:08 | disposition left against medical advice (07) ==
LOC: ER 18:52
DX: R11.2 Nausea with vomiting, unspecified (principal); R19.7 Diarrhea, unspecified; R53.1 Weakness; F03.90 Unspecified dementia, unspecified severity, without behavioral disturbance, psychotic disturbance, mood disturbance, and anxiety; Z86.73 Personal history of transient ischemic attack (TIA), and cerebral infarction without residual deficits
CPT/HCPCS: 36415; 71045; 80053; 85025; 99281